=== PATIENT | female | born 2000 | race Caucasian/White ===

== ENCOUNTER 2022-06-14 17:06 | Emergency (ER) | payer OTHER, SELFPAY ==
--- OUTSIDE RECORDS SUMMARY | 2022-06-14 17:14 | XMS REPORT | Continuity of Care Document ---
:2000 [facility] t Address [address] [place] [address] Dr. Zafar [address] [place] [address] Care Team Providers Name Role Phone PCP, PATIENT DOES NOT HAVE A Primary Care Physician UnavailYUKI Crews Attending Clinician Unavailable Yuki Joe Attending Clinician Bryan Kilpatrick MD Attending Clinician [phone] BRYAN KILPATRICK Attending Clinician Unavailable ROXIE KAPOOR Attending Clinician Unavailable Roxie Kapoor MD Attending Clinician NA SHAH Attending Clinician Unavailable Na Shah MD Attending Clinician Riddhi Proctor Attending Clinician RIDDHI CHEUNG Attending Clinician Unavailable Doctor Unassigned, Prue Attending Clinician Unavailable VENU MUIR Attending Clinician Unavailable PADMINI PURVIS Attending Clinician Unavailable HAYLEY STARKEY Attending Clinician Unavailable ROXIE KAPOOR Admitting Clinician Unavailable Payers Payer Name Policy Type Policy Number Effective Date Expiration Date S ource [employer] [id number] 2020 00:00:00 Problems Condition Condition Condition Status Onset Resolution Last Treating Co mments Source Name Details Category Date Date Treatment Clinician Date No known No known Disease Unive rs active active ity of problems problems [facility] Allergies, Adverse Reactions, Alerts Allergy Allergy Status Severity Reaction(s) Onset Inactive Treating Comm ents Source Name Type Date Date Clinician NO KNOWN Drug Active Univers ALLERGIE Class ity of S [facility] Social History Social Habit Start Date Stop Date Quantity Comments Source History SDLA University o f Alcohol Std [place] [facility] History [facility] University o f Alcohol Binge [place] [facility] History [facility] University o f Alcohol Comment [place] [facility] Exposure to 2022-06-04 2022-06-14 Not sure University SARS-CoV-2 00:00:00 11:30:00 [facility] (event) Branch Alcohol intake 2022-06-14 2022-06-14 Lifetime University of 00:00:00 00:00:00 non-drinker [facility] (finding) [place] Tobacco use and 2021-12-28 2021-12-28 Smokeless tobacco Un iversity of exposure 00:00:00 00:00:00 non-user [place] [facility] [place] History SDOH 2019-01-20 2019-01-20 1 University o f Alcohol Frequency 00:00:00 00:00:00 [facility] edical [place] Sex Assigned At [birth year] Universit y of 00:00:00 00:00:00 [facility] Smoking Status Start Date Stop Date Source Tobacco smoking consumption Univ ersity of [facility] unknown Branch Never smoked tobacco [facility] Medications Ordered Filled Start Stop Current Ordering Indication Dosage Frequency Signature Comments Components Source Medication Medication Date Date Medication? Clinician (SIG) Name Name diphenhydrA 2021-06 No 25mg 25 mg, Uni vers MINE 08-14 Slow IV ity of (BENADRYL) 02:00: 01:55 Push, [place] injection 00 :00 ONCE, 1 Medical 25 mg dose, On [facility] 06/12/22 at 2000, STAT dexamethaso 2021-06 No 10mg 10 mg, Uni vers ne sod phos 08-14 Slow IV ity of PF 02:00: 01:55 Push, [place] injection 00 :00 ONCE, 1 Medical 10 mg dose, On Branch 06/12/22 at 2000, 1 mL acetaminoph 2021-06 No 1000mg 1,000 mg, Univers en 08-14 Oral, ity of (TYLENOL) 00:30: 01:23 ONCE, [place] tablet [place] :[place] dose, On Medical 1,000 mg Sun [place] 06/12/22 at 1830, Routine diphenhydrA 2021-06- No 25mg 25 mg, Uni vers MINE 08-14 Slow IV ity of (BENADRYL) 00:00: 01:26 Push, [place] injection 00 :00 ONCE, 1 Medical 25 mg dose, On Branch 06/12/22 at 1800, STAT metoclopram 2021-06 No 10mg 10 mg, Uni vers cheryl HCl 08-14 Slow IV ity of (REGLAN) 00:00: 01:24 Push, [place] injection 00 :00 ONCE, 1 Medical 10 mg dose, On Branch 06/12/22 at 1800, AMADO NaCl 0.9% 2021-06- No 1000mL at 999 Uni vers (NS) bolus 08-14 mL/hr, ity of infusion 00:00: 02:31 1,000 mL, Neel as 1,000 mL 00 :00 IV Medical Infusion, Branch ONCE, 1 dose, On 06/12/22 at 1800, STAT metFORMIN 0 Yes [id number] 500mg Take 1 U nivers 500 mg 7-16 tablet by ity of tablet 00:00: mouth in [place] [address] [facility] morning Branch and 1 tablet in the evening. metFORMIN 2021-0 Yes [id number] 500mg Take 1 U nivers 500 mg 7-16 tablet by ity of tablet 00:00: mouth in [place] [address] [facility] morning [place] and 1 tablet in the evening. metFORMIN 2021-0 Yes [id number] 500mg Take 1 U nivers 500 mg 7-16 tablet by ity of tablet 00:00: mouth in [place] [address] [facility] morning [place] and 1 tablet in the evening. ondansetron 2021-0 Yes [id number] 4mg Take 1 Univers 4 mg 7-12 tablet by ity of disintegrat 00:00: mouth [place] ing tablet 00 every 8 Medica l (eight) Branch hours as needed for Nausea and Vomiting (N/V). ondansetron 2021-0 Yes [id number] 4mg Take 1 Univers 4 mg 7-12 tablet by ity of disintegrat 00:00: mouth [place] ing tablet 00 every 8 Medica l (eight) Branch hours as needed for Nausea and Vomiting (N/V). ondansetron 2021-0 Yes [id number] 4mg Take 1 Univers 4 mg 7-12 tablet by ity of disintegrat 00:00: mouth [place] ing tablet 00 every 8 Medica l (eight) Branch hours as needed for Nausea and Vomiting (N/V). norgestimat 0 Yes Take by Uni vers e-ethinyl 5-03 mouth. ity of estradiol 09:56: [place] (SPRINTEC, 39 Medical 28, ORAL) Branch norgestimat 0 Yes Take by Uni vers e-ethinyl 5-03 mouth. ity of estradiol 09:56: [place] (SPRINTEC, 39 Medical 28, ORAL) Branch norgestimat 0 Yes Take by Uni vers e-ethinyl 5-03 mouth. ity of estradiol 09:56: [place] (SPRINTEC, 39 Medical 28, ORAL) Branch norgestimat 0 Yes Take by Uni vers e-ethinyl 5-03 mouth. ity of estradiol 09:56: [place] (SPRINTEC, 39 Medical 28, ORAL) Branch norgestimat 0 Yes Take by Uni vers e-ethinyl 5-03 mouth. ity of estradiol 09:56: [place] (SPRINTEC, 39 Medical 28, ORAL) Branch norgestimat 0 Yes Take by Uni vers e-ethinyl 5-03 mouth. ity of estradiol 09:56: [place] (SPRINTEC, 39 Medical 28, ORAL) Branch fluticasone 0 Yes [id number] 2{spray Use 2 Univers propionate 5-03 } Sprays in ity of 50 00:00: each [place] mcg/actuati 00 nostril Medic al on nasal daily. Branch spray fluticasone 2021-0 Yes [id number] 2{spray Use 2 Univers propionate 5-03 } Sprays in ity of 50 00:00: each [place] mcg/actuati 00 nostril Medic al on nasal daily. Branch spray fluticasone 2021-0 Yes [id number] 2{spray Use 2 Univers propionate 5-03 } Sprays in ity of 50 00:00: each [place] mcg/actuati 00 nostril Medic al on nasal daily. Branch spray fluticasone 2021-0 Yes [id number] 2{spray Use 2 Univers propionate 5-03 } Sprays in ity of 50 00:00: each [place] mcg/actuati 00 nostril Medic al on nasal daily. Branch spray fluticasone Yes [id number] 2{spray Use 2 Univers propionate 5-03 } Sprays in ity of 50 00:00: each [place] mcg/actuati 00 nostril Medic al on nasal daily. Branch spray fluticasone Yes [id number] 2{spray Use 2 Univers propionate 5-03 } Sprays in ity of 50 00:00: each [place] mcg/actuati 00 nostril Medic al on nasal daily. Branch spray amoxicillin 2021- No [id number] 875mg Take 1 Univers 875 mg 5-03 05-14 tablet by ity of tablet 00:00: 04:59 mouth 2 [place] 00 :00 (two) [facility] daily for 10 days. azithromyci Yes [id number] 500mg Take 1 Univers n 500 mg 5-05 tablet by ity of tablet 00:00: mouth [place] 00 daily. Medical Branch azithromyci Yes [id number] 500mg Take 1 Univers n 500 mg 5-05 tablet by ity of tablet 00:00: mouth [place] 00 daily. [facility] azithromyci 2021- No [id number] 500mg Take 1 Univers n 500 mg 5-05 07-12 tablet by ity o f tablet 00:00: 00:00 mouth [place] 00 :00 daily. [facility] Vital Signs Vital Name Observation Time Observation Value Comments Source Systolic blood 2022-06-14 17:32:00 144 [facility] Diastolic blood 2022-06-14 17:32:00 94 mm[Hg] [facility] Heart rate 2022-06-14 17:32:00 96 /min [facility] Body temperature 2022-06-14 17:32:00 36.89 Natalia [facility] Respiratory rate 2022-06-14 17:32:00 16 /min [facility] Body height 2022-06-14 17:32:00 149.9 cm [facility] Body weight 2022-06-14 17:32:00 114.76 kg [facility] BMI 2022-06-14 17:32:00 51.10 kg/m2 Universi ty [facility] [place] [facility] Oxygen saturation in 2022-06-14 17:32:00 100 /min University of Arterial blood by [facility] chiquis Pulse oximetry Branch Systolic blood 2022-06-13 03:15:00 116 mm[Hg] Univer sity of pressure [place] [facility] Diastolic blood 2022-06-13 03:15:00 71 mm[Hg] Unive rsity of pressure [place] [facility] Heart rate 2022-06-13 03:15:00 78 /min [facility]i ty [facility] [place] [facility] Respiratory rate 2022-06-13 03:15:00 18 /min Univ ersity of [place] [facility] Oxygen saturation in 2022-06-13 03:15:00 98 /min University of Arterial blood by [facility] Pulse oximetry Branch Body temperature 2022-06-12 23:29:00 37.11 Natalia Univ ersity [facility] [place] [facility] Body height 2022-06-12 23:29:00 147.3 cm [facility] [place] [facility] Body weight 2022-06-12 23:29:00 112.492 kg [facility] [place] [facility] BMI 2022-06-12 23:29:00 51.83 kg/m2 [facility] [place] [facility] Systolic blood 2022-01-01 20:53:14 137 mm[Hg] Univer sity of pressure [place] [facility] Diastolic blood 2022-01-01 20:53:14 87 mm[Hg] Unive rsity of pressure [place] [facility] Heart rate 2022-01-01 20:53:14 80 /min Universi ty [facility] [place] [facility] Respiratory rate 2022-01-01 20:53:14 19 /min Univ ersity of [place] [facility] Oxygen saturation in 2022-01-01 20:53:14 98 /min University of Arterial blood by [facility] Pulse oximetry Branch Body temperature 2022-01-01 17:59:00 37.56 Natalia Univ ersity [facility] [place] [facility] Body height 2022-01-01 17:59:00 149.9 cm [facility] [place] [facility] Body weight 2022-01-01 17:59:00 112.628 kg [facility] [place] [facility] BMI 2022-01-01 17:59:00 50.15 kg/m2 [facility] [place] [facility] Systolic blood 2021-12-28 22:49:00 130 mm[Hg] Univer sity of pressure [place] [facility] [place] Diastolic blood 2021-12-28 22:49:00 90 mm[Hg] Unive rsity of pressure [place] [facility] [place] Heart rate 2021-12-28 22:48:00 95 /min Universi ty of [facility] Body temperature 2021-12-28 22:48:00 36.89 Natalia Univ ersity of [facility] Respiratory rate 2021-12-28 22:48:00 16 /min Univ ersity of [place] [facility] [place] Body height 2021-12-28 22:48:00 149.9 cm Universi ty of [place] [facility] [place] Body weight 2021-12-28 22:48:00 111.857 kg Universi ty of [facility] BMI 2021-12-28 22:48:00 49.81 kg/m2 Universi ty of [facility] Oxygen saturation in 2021-12-28 22:48:00 97 /min University of Arterial blood by [facility] Pulse oximetry Branch Systolic blood 2021-10-19 14:55:00 115 mm[Hg] Univer sity of pressure [place] [facility] [place] Diastolic blood 2021-10-19 14:55:00 77 mm[Hg] Unive rsity of pressure [facility] Heart rate 2021-10-19 14:55:00 89 /min Universi ty of [facility] Body temperature 2021-10-19 14:55:00 36.83 Natalia Univ ersity of [facility] Respiratory rate 2021-10-19 14:55:00 20 /min Univ ersity of [facility] Body height 2021-10-19 14:55:00 149.9 cm Universi ty of [place] [facility] [place] Body weight 2021-10-19 14:55:00 110.269 kg Universi ty of [place] [facility] [place] BMI 2021-10-19 14:55:00 49.10 kg/m2 Universi ty of [facility] Branch Oxygen saturation in 2021-10-19 14:55:00 98 /min University of Arterial blood by [facility] Pulse oximetry Branch Procedures Procedure Date / Time Performing Clinician Source Performed POCT GLUCOSE (AUTOMATED) 2022-06-14 17:51:[address] [facility] CONSENT/REFUSAL FOR 2022-06-14 17:29:20 Doctor Unassigned, [facility] DIAGNOSIS AND TREATMENT [facility] POCT TEST 2022-06-13 01:24:00 Bryan Kilpatrick [facility] COMP. METABOLIC PANEL 2022-06-13 01:20:00 Bryan Kilpatrick [facility] ([id number]) [facility] CBC WITH DIFF 2022-06-13 01:20:00 Shonna [facility] URINALYSIS 2022-06-13 01:20:00 Shonna [facility] POCT GLUCOSE (AUTOMATED) 2022-06-12 23:27:00 Bryan Kilpatrick [facility] CONSENT/REFUSAL FOR 2022-06-12 22:56:38 Doctor Unassigned, [facility] DIAGNOSIS AND TREATMENT [facility] CT HEAD WO CONTRAST 2022-01-01 19:08:00 Roxie Kapoor [facility] AC PANEL 21 + LACTIC ACID 2022-01-01 18:40:00 [facility]NES[facility] 2022-01-01 18:38:00 Roxie Kapoor [facility] AMMONIA, PLASMA 2022-01-01 18:38:00 [facility]OP[facility]IN I 2022-01-01 18:38:00 Roxie Kapoor [facility] FREE T4 2022-01-01 18:38:00 Roxie Kapoor [facility] THYROID STIMULATING 2022-01-01 18:38:00 Roxie Kapoor [facility] HORMONE [facility] COMP. METABOLIC PANEL 2022-01-01 18:38:00 Roxie Kapoor [facility] ([id number]) Medical Branch ETHANOL 2022-01-01 18:38:00 Roxie Kapoor [facility] CBC WITH DIFF 2022-01-01 18:38:00 Roxie Kapoor [facility] GLYCOSYLATED HEMOGLOBIN 2022-01-01 18:38:00 [facility] PROTHROMBIN TIME / INR 2022-01-01 18:38:00 Roxie Kapoor [facility] ACTIVATED PARTIAL 2022-01-01 18:38:00 Roxie Kapoor [facility] THRMPLAS [facility] URINALYSIS 2022-01-01 18:38:00 Roxie Kapoor Pitcher o f [facility] N-TERMINAL PRO-BNP 2022-01-01 18:38:00 Roxie Kapoor [facility] URINE DRUG (IMMUNOASSAY) 2022-01-01 18:38:00 Roxie Kapoor [facility] DRUG [facility] SCREEN W/O REFLEX POCT TEST 2022-01-01 18:37:00 Roxie Kapoor [facility] NOTICE OF PRIVACY 2022-01-01 17:47:43 Doctor Unasslissy, [facility] PRACTICES [facility] CONSENT/REFUSAL FOR 2022-01-01 17:45:03 Doctor Unajoce, [facility] DIAGNOSIS AND TREATMENT [facility] POCT MOLECULAR FLU 2021-12-28 23:01:00 Na Shah [facility] POCT MOLECULAR STREP 2021-10-19 15:05:00 Riddhi Cheung [facility] STATEMENT OF PATIENT 2021-10-19 05:01:00 Doctor Unassigned, [facility] FINANCIAL RESPONSIBILITY Prue [facility] Encounters Start End Encounter Admission Attending Care Care Encounter Source Date/Time Date/Time Type Type Clinicians Facility Department ID 2022-06-14 2022-06-14 Emergency X BRITTNEY SNIDER ERT [id number] Univers 11:33:00 13:05:00 [facility] 2022-06-14 2022-06-14 Emergency Jaycob WYXIOMARA [id number] Univers 11:33:00 13:05:00 Yuki AMBROSE [id number] i [facility] [id number] [facility] [id number] [place] [address] Branch 2022-06-12 2022-06-12 Emergency Aufderheide [facility] [id number] Univers 17:31:00 21:24:00 , Bryan AMBROSE [id number] i ty of Yarelis RIVERA 4.2.7.2.686 [id number] [address] 2022-06-12 2022-06-12 Emergency X AUFDERHEIDE [facility] ERT [id number] Univers 17:31:00 21:24:00 , BRYAN de santiago [facility] 2022-01-01 2022-01-01 Emergency [facility] [id number] Univers 13:01:00 15:56:00 ROXIE de santiago [facility] 2022-01-01 2022-01-01 Emergency [facility] [id number] Univers 13:01:00 15:56:00 Roxie AMBROSE [id number] i ty of NICOLE 4.2.7.2.686 [facility] [id number] [address] 2022-01-01 2022-01-01 Emergency [facility] ERT [id number] Univers 13:01:00 15:56:00 ROXIE [facility] 2021-12-28 2021-12-28 Outpatient [facility] [id number] Univers 17:40:00 17:59:13 NA [facility] 2021-12-28 2021-12-28 Urgent [facility] [id number] Univers 17:40:00 17:59:13 [facility] [id number] it y of [facility] 4.2.7.2.686 Neel as GORGE?BLEA [id number] [address] MEDICAL OFFICE [facility] 2021-10-19 2021-10-19 Urgent [facility] [id number] Univers 09:20:00 09:40:00 Care Riddhi [facility] [id number] i ty of ARNOL 4.2.7.2.686 Neel as GORGE?BLEA [id number] [address] MEDICAL OFFICE [facility] 2021-10-19 2021-10-19 Outpatient R YOANDY [facility] [id number] Univers 09:20:00 09:20:00 RIDDHI de santiago o [facility] 2021-10-19 2021-10-19 Orders Doctor JESSICA [id number] Univers 00:00:00 00:00:00 Only Unassigned, ROBERT 350.1.13.10 ity of Prue [facility] 4.2.7.2.686 Neel as [id number] [address] 2021-10-19 2021-10-19 Letter [facility] [id number] Univers 00:00:00 00:00:00 (Out) [facility] 350.1.13.10 i ty of OPHEIM 4.2.7.2.686 Neel as GORGE?BLEA [id number] [address] MEDICAL OFFICE BUILDING 2020-07-17 2020-07-17 Outpatient [facility] [id number] Univers 16:20:00 16:20:00 VENU angelysavita mayer [facility] 2020-07-10 2020-07-10 Out[facility] [id number] Univers 11:20:00 11:20:00 PADMINI [facility] 2020-07-02 2020-07-02 Outpatient [facility] [id number] Univers 17:40:00 17:40:00 VENU mayer [facility] 2019-10-22 2019-10-22 Outpatient [facility] [id number] Univers 13:30:00 13:30:00 HAYLEY [facility] Results Test Description Test Time Test Comments Results Result Comments Source POCT GLUCOSE (AUTOMATED) 2022-06-14 17:52:47 Test Item Value Reference Range Interpretation Comme nts POCT GLU (test code = 8704383532) 162 mg/dL 70-110 H Lab Interpretation (test code = 81660-8) [facility] >30DAYS[facility]2022-06-14 17:51:00 Test Item Value Reference Range Interpretation Comments POCT Glu (age>30days) (test code = 162 mg/dL 70-110 A 3342) Lab Interpretation (test code = Abnormal 53999-8) [facility]. METABOLIC PANEL (32490)2022-06-13 01:40:55 Test Item Value Reference Range Interpretation Comments NA (test code = 138 mmol/L 135-145 8719030437) K (test code = 4.1 mmol/L 3.5-5.0 2941934338) CL (test code = 103 mmol/L 98-108 7653216128) CO2 TOTAL (test code = 26 mmol/L 23-31 9637698206) AGAP (test code = 2-16 4216561540) BUN (test code = 10 mg/dL 7-23 4146618783) GLUCOSE (test code = 180 mg/dL 70-110 H 9045793038) CREATININE (test code = 0.41 mg/dL 0.50-1.04 L 7577437824) TOTAL BILI (test code = 0.5 mg/dL 0.1-1.9 0686451069) CALCIUM (test code = 8.8 mg/dL 8.6-10.6 4435411061) T PROTEIN (test code = 6.8 g/dL 6.3-8.2 0336237436) ALBUMIN (test code = 4.2 g/dL 3.5-5.0 7246943609) ALK PHOS (test code = 59 U/L 34-122 3498296543) ALTv (test code = 49 U/L 5-35 H 1742-6) AST(SGOT) (test code = 56 U/L 13-40 H 0956839679) eGFR (test code = mL/min/1.73m2 4222134805) JAYDEN (test code = JAYDEN) Association of Glomerular Filtration Rate (GFR) and Staging of Kidney Disease* + --+ --+ ------+| GFR (mL/min/1.73 m2) ?| With Kidney Damage ?| ?Without Kidney Damage+ --------+ --------+ +| ?>90 ?| ?Stage one ?| ? Normal ?+ ---+ ---+ -------+| ?60-89 ?| ?Stage two ?| ? Decreased GFR ? + --+ --+ ------+| ?30-59 ?| ?Stage three ?| ? Stage three ? + --+ --+ ------+| ?15-29 ?| ?Stage four ? | ? Stage four ?+ ---+ ---+ -------+| ?<15 (or dialysis) ? ?| ?Stage five ? | ? Stage five ?+ ---+ ---+ -------+ *Each stage assumes the associated GFR level has been in effect for at least three months. ?Stages 1 to 5, with or without kidney disease, indicate chronic kidney disease. Notes: Determination of stages one and two (with eGFR >59mL/min/1.73 m2) requires estimation of kidney damage for at least three months as defined by structural or functional abnormalities of the kidney, manifested by either:Pathological abnormalities or Markers of kidney damage (including abnormalities in the composition of the blood or urine or abnormalities in imaging tests). Lab Interpretation Abnormal (test code = 66049-2) [facility] WITH [id number] 01:27:37 Test Item Value Reference Range Interpretation Comments WBC (test code = See_Comment [Automated 2620-2) message] The sy stem which generated this result transmitted reference range : 4.30 - 11.10 10*3/?L. The reference range was not used to interpret this result as normal/abnormal . RBC (test code = See_Comment [Automated 416-8) message] The sy stem which generated this result transmitted reference range : 3.93 - 5.25 10*6/?L. The reference range was not used to interpret this result as normal/abnormal . HGB (test code = 14.4 g/dL 11.6-15.0 718-7) HCT (test code = 41.0 % 35.7-45.2 4544-3) MCV (test code = 83.5 fL 80.6-95.5 787-2) MCH (test code = 29.3 pg 25.9-32.8 785-6) MCHC (test code = 35.1 g/dL 31.6-35.1 786-4) RDW-SD (test code = 38.2 fL 39.0-49.9 L 11616-5) RDW-CV (test code = 12.7 % 12.0-15.5 788-0) PLT (test code = See_Comment [Automated 827-3) message] The sy stem which generated this result transmitted reference range : 166 - 358 10*3/ ?L. The reference r delores was not used to interpret this result as normal/abnormal . MPV (test code = 10.9 fL 9.5-12.9 12677-1) NRBC/100 WBC (test See_Comment [Automat ed code = 1461056215) message] The system which generated this result transmitted reference range : 0.0 - 10.0 /100 WBCs. The refer ence range was not u sed to interpret th is result as normal/abnormal . NRBC x10^3 (test code See_Comment [Auto mated = 1580723228) message] The s ystem which generated this result transmitted reference range : 10*3/?L. The reference range was not used to interpret this result as normal/abnormal . GRAN MAT (NEUT) % 56.6 % (test code = 770-8) IMM GRAN % (test code 0.50 % = 2447352639) LYMPH % (test code = 33.2 % 736-9) MONO % (test code = 8.0 % 5905-5) EOS % (test code = 1.0 % 713-8) BASO % (test code = 0.7 % 706-2) GRAN MAT x10^3(ANC) 3.49 10*3/uL 1.88-7.09 (test code = 1657049521) IMM GRAN x10^3 (test 0.03 10*3/uL 0.00-0.06 code = 7005344124) LYMPH x10^3 (test code 2.04 10*3/uL 1.32-3.29 = 731-0) MONO x10^3 (test code 0.49 10*3/uL 0.33-0.92 = 742-7) EOS x10^3 (test code = 0.06 10*3/uL 0.03-0.39 711-2) BASO x10^3 (test code 0.04 10*3/uL 0.01-0.07 = 704-7) Lab Interpretation Abnormal (test code = 61066-2) [facility] [id number] 01:24:00 Test Item Value Reference Range Interpretation Comments POCT PREG (test code = 1605) negative On board controls acceptable with positive C Line (test code = 3574) POCT PREG LOT # (test code = 3575) [id number] POCT PREG TEST DATE (test 09/17/2023 code = 3576) Lab Interpretation (test code = Normal 58289-0) [facility]2022-06-12 23:34:10 Test Item Value Reference Range Interpretation Comments POCT GLU (test code = 2375011764) 296 mg/dL 70-110 H Lab Interpretation (test code = Abnormal 93349-2) [facility] (A1C)2022-01-01 20:12:57 Test Item Value Reference Range Interpretation Comments HGB A1C (test code = 8.2 % 4-5.7 H 4548-4) JAYDEN (test code = JAYDEN) Reference RangesNormal: <5.7%Prediabetes: 5.7 - 6.4%Diabetes: > 6.5% Lab Interpretation (test Abnormal code = 31363-6) [facility] HospitalTHYROID STIMULATING [id number] 19:46:18 Test Item Value Reference Range Interpretation Comments TSH (test code = See_Comment [Automated message] [id number]) The system Quid generated this result transmitted ref erence range: 0.45 - 4 .70 mIU/L. The refe rence range was not u sed to interpret this result as normal/abnor mal. Lab Interpretation (test Normal code = 26673-8) [facility] HospitalFREE [id number] 19:33:18 Test Item Value Reference Range Interpretation Comments FREE T4 (test code = See_Comment [Autom ated message] [id number]) The system Quid generated this result transmitted ref erence range: 0.78 - 2 .20 ng/dL:. The ref erence range was not u sed to interpret this result as normal/abnor mal. Lab Interpretation (test Normal code = 60387-5) [facility] HospitalTROPONIN [id number] 19:28:16 Test Item Value Reference Interpretation Comments Range TROPONIN I (test 0.003 ng/mL See_Comment [Automated code = 0272063694) message] The system which generated this result transmitted reference range : <=0.034. The reference range was not used to interpret this result as normal/abnormal . JAYDEN (test code = Reference (Normal) JAYDEN) Range (defined by the 99th percentile reference limit): <= 0.034 ng/mL Note: Cardiac troponin begins to rise 3-4 hours after the onset of ischemia. Repeat in 4-6 hours if the sample was drawn within 3-4 hours of the onset of the symptom and found normal. Diagnosis of myocardial injury is made with acute changes in cTn concentrations with at least one serial sample above the 99th percentile upper reference limit (URL), taken together with the patient's clinical presentation. Biotin has been reported to cause a negative bias, interpret results relative to patient's use of biotin. Lab Interpretation Normal (test code = 19444-4) [facility] HospitalN-TERMINAL [id number] 19:24:55 Test Item Value Reference Range Interpretation Comments NT-proBNP (test code 35 pg/mL See_Comment [Autom ated = 5542255709) message] The system which generated this result transmitted reference range : <=125. The reference range was not used to interpret this result as normal/abnormal . JAYDEN (test code = JAYDEN) Biotin has been reported to cause a negative bias, interpret results relative to patient's use of biotin. Lab Interpretation Normal (test code = 20504-7) [facility] HospitalETHANOL2022-07-16 19:24:45 ALCOHOL<10mg/dL01/01/2022 2:[address] [facility]<10 [id number] Toxic>100 Depression of MEDICAL CENTER MANAGER>400 Fatalities ReportedUnH[facility] SoutheastACTIVATED PARTIAL THRMPLAS LEYDI 2022-01-01 19:23:59 Test Item Value Reference Range Interpretation Comments APTT Patient (test See_Comment [Automat ed code = 3173-2) message] The system which generated this result transmitted reference range : 23 - 38 Seconds . The reference range was not used to interpr et this result as normal/abnormal . JAYDEN (test code = JAYDEN) The [facility] [place] patient population mean normal value for aPTT is 30 seconds. Lab Interpretation Normal (test code = 08181-8) [facility] HospitalPROTHROMBIN TIME / [id number] 19:21:59 Test Item Value Reference Range Interpretation Comments PROTIME PATIENT (test See_Comment [Auto mated message] code = 5964-2) The system [employer] generated this result transmitted ref erence range: 12.0 - 1 4.7 Seconds. The re ference range was not u sed to interpret this result as normal/abnor mal. INR (test code = 6301-6) Nor mal INR <1.1; Warfarin Therap eutic range 2.0 to 3. 0 or 2.5 to 3.5, dep ending upon the indica tions. Lab Interpretation (test Normal code = 24319-3) [facility] HospitalAMMONIA, [id number] 19:18:47 Test Item Value Reference Range Interpretation Comments AMMONIA (test code = 0388750656) 9-33 L Lab Interpretation (test code = Abnormal 63340-6) [facility] HospitalMAGNESIUM2022-07-16 19:10:59 Test Item Value Reference Range Interpretation Comments MAGNESIUM (test code = 4502660505) 1.7 mg/dL 1.7-2.4 Lab Interpretation (test code = Normal 55215-0) [facility] HospitalCOMP. METABOLIC PANEL (78734)2022-01-01 19:10:38 Test Item Value Reference Range Interpretation Comments NA (test code = 136 mmol/L 135-145 7679593103) K (test code = 4.6 mmol/L 3.5-5 6152383507) CL (test code = 103 mmol/L 98-108 4481434612) CO2 TOTAL (test code = 23 mmol/L 23-31 6009326864) AGAP (test code = 2-16 6231297947) BUN (test code = 9 mg/dL 7-23 1657120666) GLUCOSE (test code = 282 mg/dL 70-110 H 0590743544) CREATININE (test code = 0.34 mg/dL 0.5-1.04 L 0797102688) TOTAL BILI (test code = 0.5 mg/dL 0.1-1.9 7778498014) CALCIUM (test code = 9.1 mg/dL 8.6-10.6 5255896810) T PROTEIN (test code = 7.1 g/dL 6.3-8.2 3058340687) ALBUMIN (test code = 4.4 g/dL 3.5-5 5441217145) ALK PHOS (test code = 50 U/L 34-122 3839007164) ALTv (test code = 42 U/L 5-35 H 1742-6) AST(SGOT) (test code = 44 U/L 13-40 H 8553183297) eGFR (test code = mL/min/1.73m2 9088587284) JAYDEN (test code = JAYDEN) Association of Glomerular Filtration Rate (GFR) and Staging of Kidney Disease* + --+ --+ ------+| GFR (mL/min/1.73 m2) ?| With Kidney Damage ?| ?Without Kidney Damage+ --------+ --------+ +| ?>90 ?| ?Stage one ?| ? Normal ?+ ---+ ---+ -------+| ?60-89 ?| ?Stage two ?| ? Decreased GFR ? + --+ --+ ------+| ?30-59 ?| ?Stage three ?| ? Stage three ? + --+ --+ ------+| ?15-29 ?| ?Stage four ? | ? Stage four ?+ ---+ ---+ -------+| ?<15 (or dialysis) ? ?| ?Stage five ? | ? Stage five ?+ ---+ ---+ -------+ *Each stage assumes the associated GFR level has been in effect for at least three months. ?Stages 1 to 5, with or without kidney disease, indicate chronic kidney disease. Notes: Determination of stages one and two (with eGFR >59mL/min/1.73 m2) requires estimation of kidney damage for at least three months as defined by structural or functional abnormalities of the kidney, manifested by either:Pathological abnormalities or Markers of kidney damage (including abnormalities in the composition of the blood or urine or abnormalities in imaging tests). Lab Interpretation Abnormal (test code = 71554-3) [facility] WITH [id number] 19:03:19 Test Item Value Reference Range Interpretation Comments WBC (test code = See_Comment [Automated 90-2) message] The sy stem which generated this result transmitted reference range : 4.30 - 11.10 10*3/?L. The reference range was not used to interpret this result as normal/abnormal . RBC (test code = See_Comment [Automated 789-8) message] The sy stem which generated this result transmitted reference range : 3.93 - 5.25 10*6/?L. The reference range was not used to interpret this result as normal/abnormal . HGB (test code = 14.7 g/dL 11.6-15 718-7) HCT (test code = 41.5 % 35.7-45.2 4544-3) MCV (test code = 83.7 fL 80.6-95.5 787-2) MCH (test code = 29.6 pg 25.9-32.8 785-6) MCHC (test code = 35.4 g/dL 31.6-35.1 H 786-4) RDW-SD (test code = 37.7 fL 39-49.9 L 04732-4) RDW-CV (test code = 12.5 % 12-15.5 788-0) PLT (test code = See_Comment [Automated 777-3) message] The sy stem which generated this result transmitted reference range : 166 - 358 10*3/ ?L. The reference r delores was not used to interpret this result as normal/abnormal . MPV (test code = 11.1 fL 9.5-12.9 88809-9) NRBC/100 WBC (test See_Comment [Automat ed code = 4307169614) message] The system which generated this result transmitted reference range : 0.0 - 10.0 /100 WBCs. The refer ence range was not u sed to interpret th is result as normal/abnormal . NRBC x10^3 (test code See_Comment [Auto mated = 6467531811) message] The s ystem which generated this result transmitted reference range : 10*3/?L. The reference range was not used to interpret this result as normal/abnormal . GRAN MAT (NEUT) % 68.2 % (test code = 770-8) IMM GRAN % (test code 0.50 % = 7181067098) LYMPH % (test code = 23.6 % 736-9) MONO % (test code = 6.4 % 5905-5) EOS % (test code = 0.5 % 713-8) BASO % (test code = 0.8 % 706-2) GRAN MAT x10^3(ANC) 4.50 10*3/uL 1.88-7.09 (test code = 7664828787) IMM GRAN x10^3 (test 0.03 10*3/uL 0-0.06 code = 3915831686) LYMPH x10^3 (test code 1.55 10*3/uL 1.32-3.29 = 731-0) MONO x10^3 (test code 0.42 10*3/uL 0.33-0.92 = 742-7) EOS x10^3 (test code = 0.03 10*3/uL 0.03-0.39 711-2) BASO x10^3 (test code 0.05 10*3/uL 0.01-0.07 = 704-7) Lab Interpretation Abnormal (test code = 11235-1) [facility] [id number] 18:37:00 Test Item Value Reference Range Interpretation Comments POCT PREG (test code = 1605) negative On board controls acceptable with present C Line (test code = 3574) POCT PREG LOT # (test code = 3575) [id number] POCT PREG TEST DATE (test 04/18/2023 code = 3576) Lab Interpretation (test code = Normal 68635-3) [facility] MOLECULAR [id number] 23:13:16 Test Item Value Reference Range Interpretation Comments POCT Molecular FluA (test code = Negative Negative 23845-4) POCT Molecular FluB (test code = Negative Negative 85638-2) Lab Interpretation (test code = Normal 83744-1) [facility] MOLECULAR [id number] 15:09:14 Test Item Value Reference Range Interpretation Comments POCT Molecular Strep (test code = Positive Negative A 23587-8) Lab Interpretation (test code = Abnormal 80212-4) [facility]"
[2022-06-14 20:02] LABS: Absolute Lymphocytes (CBC) 2.5 K/uL (0.7-4.9); Hematocrit 42.7 % (36.0-45.0); Lymphocytes % 33.6 % (15.3-44.8); MCV 85.6 fL (80-100); MPV 9.2 fL (7.6-11.3); RBC Red Blood Cell Count 4.99 M/uL (3.86-4.86)
[2022-06-14 20:11] LABS: Albumin 3.7 g/dL (3.4-5.0); Bilirubin Direct 0.1 mg/dL (0-0.2); Bilirubin Total 0.4 mg/dL (0.2-1.0); Magnesium 1.8 mg/dL (1.6-2.4); Potassium 3.9 mmol/L (3.5-5.1); Protein, Total 7.4 g/dL (6.4-8.2)
--- NOTE | 2022-06-14 20:55 | RAD REPORT ---
EXAM DESCRIPTION: CT - Head Brain Wo Cont - 06/14/2022 8:21 pm CLINICAL HISTORY: lightheaded COMPARISON: No comparisons TECHNIQUE: All CT scans are performed using dose optimization technique as appropriate and may inclu de automated exposure control or mA/KV adjustment according to patient size. FINDINGS: No intracranial hemorrhage, hydrocephalus or extra-axial fluid collection.No areas of brai n edema or evidence of midline shift. Bilateral mastoid fluid. The calvarium is intact. IMPRESSION: No acute intracranial abnormality. Nonspecific bilateral mastoid fluid.
[2022-06-14 22:30] LABS: Urine Blood 3+ (Negative); Urine Glucose Negative (Negative); Urine Protein 2+ (Negative); Urine Specific Gravity >=1.030 (1.005-1.030)
--- NOTE | 2022-06-14 22:38 | ER ---
Nurse's Notes [facility] Name: Pam John Age: 22 yrs Sex: Female : 2000 Arrival Date: 06/14/2022 Time: 17:10 Bed DIS3 Private MD: Diagnosis: Diabetes mellitus due to underlying condition without complications Presentation: 06/14 17:39 Chief complaint: Patient states: AMS since 06/10. Was seen at [facility], ll1 had a full work-up. Found her sugar in the 300's. Still very sleepy, no appetite, emotional since. Coronavirus screen: Client denies travel out of the [place] in the last 14 days. At this time, the client does not indicate any symptoms associated with coronavirus-19. Ebola Screen: Patient denies travel to an Ebola-affected area in the 21 days before illness onset. Initial Sepsis Screen: Does the patient meet any 2 criteria? No. Patient's initial sepsis screen is negative. Does the patient have a suspected source of infection? No. Patient's initial sepsis screen is negative. Risk Assessment: Do you want to hurt yourself or someone else? Patient reports no desire to harm self or others. Onset of symptoms was June 10, 2022. 17:39 Method Of Arrival: Ambulatory [facility] 17:39 Acuity: ROBERT 3 ll1 Triage Assessment: 17:41 General: Appears uncomfortable, Behavior is cooperative, appropriate for age. Neuro: ll1 Reports headache. Cardiovascular: No deficits noted. Respiratory: No deficits noted. 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 - Social history:: Smoking status: Patient denies any tobacco usage or history of. Screenin:45 [facility] ED Fall Risk Assessment (Adult) History of falling in the last 3 months, kl including since admission. Abuse screen: Denies threats or abuse. Nutritional screening: No deficits noted. Tuberculosis screening: No symptoms or risk factors identified. Assessment: 19:45 Reassessment: Patient appears in no apparent distress at this time. Patient and/or kl family updated on plan of care and expected duration. Pain level reassessed. Patient is alert, oriented x 3, equal unlabored respirations, skin warm/dry/pink. General: Appears in no apparent distress. comfortable, Behavior is calm, cooperative. Pain: Denies pain. Vital Signs: 17:39 BP 131 / 83; Pulse 98; Resp 18; Temp 98.9; Pulse Ox 98% ; Weight 114.76 kg; Height 4 ll1 ft. 11 in. (149.86 cm); Pain 5/10; 17:39 Body Mass Index 51.10 (114.76 kg, 149.86 cm) ll1 ED Course: 17:10 Patient arrived in ED. as 17:12 Yohannes Couch PA is PHCP. cp 17:12 Yohannes Fernandez MD is Attending Physician. cp 17:39 Arm band placed on. ll1 17:41 Triage completed. ll1 20:23 CT Head Brain wo Cont In Process Unspecified. EDMS 22:46 No provider procedures requiring assistance completed. Patient did not have IV access kl during this emergency room visit. Administered Medications: No medications were administered Medication: 22:46 VIS not applicable for this client. kl Outcome: 22:37 Discharge ordered by MD. cp 22:47 Discharged to home ambulatory, with family. kl 22:47 Condition: good 22:47 Discharge instructions given to patient, family, Instructed on discharge instructions, follow up and referral plans. Demonstrated understanding of instructions. 23:09 Patient left the ED. kl Signatures: Dispatcher [employer] EDNC Hayley Brar RN RN kl Martinez, Amelia as Yohannes Couch PA PA cp Lewis, Lynsay, RN RN 1
--- NOTE | 2022-06-14 22:38 | EDPHYS ---
Physician Documentation [facility] Name: Pam John Age: 22 yrs Sex: Female : 2000 Arrival Date: 06/14/2022 Time: 17:10 Bed DIS3 Private MD: ED Physician Yohannes Fernandez HPI: 06/14 18:30 This 22 yrs old Female presents to ER via Ambulatory with complaints of Altered Mental cp Status. 18:30 The patient presents with patient describes symptoms as head feels like in a "fog". cp Onset: The symptoms/episode began/occurred last week. Possible causes: elevated blood glucose. Associated signs and symptoms: Pertinent positives: fatigue, Pertinent negatives: abdominal pain, chest pain, numbness, shortness of breath, vomiting, weakness. Current symptoms: In the emergency department the patient's symptoms are unchanged from the initial presentation, despite home interventions. Patient's baseline: Neuro: alert and fully oriented, Motor: no deficits, Ambulation: walks without assistance, Speech: normal. The patient has been recently seen by a physician: in [place] [facility], with similar presenting complaints. 18:30 Patient reports being prescribed Metformin 500 mg bid for diabetes but admits to not cp taking medication as prescribed. 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 - Social history:: Smoking status: Patient denies any tobacco usage or history of. ROS: 18:35 Constitutional: Positive for fatigue, Negative for body aches, chills, fever, poor PO cp intake. 18:35 Eyes: Negative for injury, pain, redness, and discharge. cp 18:35 ENT: Negative for drainage from ear(s), ear pain, sore throat, difficulty swallowing, difficulty handling secretions. 18:35 Cardiovascular: Negative for chest pain, edema, palpitations. 18:35 Respiratory: Negative for cough, shortness of breath, wheezing. 18:35 Abdomen/GI: Negative for abdominal pain, vomiting, diarrhea, constipation, anorexia, black/tarry stool, rectal bleeding. 18:35 : Negative for urinary symptoms, flank pain. 18:35 Skin: Negative for cellulitis, rash. 18:35 Neuro: Negative for altered mental status, headache, syncope. 18:35 All other systems are negative. Exam: 18:40 Constitutional: The patient appears in no acute distress, alert, awake, non-toxic, well cp developed, well nourished. 18:40 Head/Face: Normocephalic, atraumatic. cp 18:40 Eyes: Periorbital structures: appear normal, Pupils: equal, round, and reactive to light and accomodation, Extraocular movements: intact throughout, Conjunctiva: normal, no exudate, no injection, Sclera: no appreciated abnormality, Lids and lashes: appear normal, bilaterally. 18:40 ENT: External ear(s): are unremarkable, Nose: is normal, Mouth: Lips: moist, Oral mucosa: pink and intact, moist, Posterior pharynx: Airway: no evidence of obstruction, patent, swelling, is not appreciated, erythema, is not appreciated, exudate, is not appreciated. 18:40 Neck: ROM/movement: is normal, is supple, without pain, no range of motions limitations, no meningismus. 18:40 Chest/axilla: Inspection: normal. 18:40 Cardiovascular: Rate: normal, Rhythm: regular. 18:40 Respiratory: the patient does not display signs of respiratory distress, Respirations: normal, no use of accessory muscles, no retractions, labored breathing, is not present, Breath sounds: are clear throughout, no decreased breath sounds, no stridor, no wheezing. 18:40 Abdomen/GI: Exam negative for discomfort, distension, guarding, Inspection: abdomen appears normal. 18:40 Back: pain, is absent, ROM is normal. 18:40 Skin: no rash present. 18:40 Neuro: Orientation: to person, place \\T\\ time. Mentation: is normal, Cerebellar function: is grossly normal, Motor: moves all fours, strength is normal, Sensation: is normal, Gait: is steady, at a normal pace, without difficulty. Vital Signs: 17:39 BP 131 / 83; Pulse 98; Resp 18; Temp 98.9; Pulse Ox 98% ; Weight 114.76 kg; Height 4 ll1 ft. 11 in. (149.86 cm); Pain 5/10; 17:39 Body Mass Index 51.10 (114.76 kg, 149.86 cm) ll1 MDM: 19:10 Patient medically screened. joe 20:00 Differential Diagnosis: electrolyte abnormality, hypoglycemia, UTI, volume depletion, cp hyperglycemia. 22:36 Data reviewed: vital signs, nurses notes, lab test result(s), EKG. 22:36 Counseling: I had a detailed discussion with the patient and/or guardian regarding: the cp historical points, exam findings, and any diagnostic results supporting the discharge/admit diagnosis, lab results, the need for outpatient follow up, a family practitioner, to return to the emergency department if symptoms worsen or persist or if there are any questions or concerns that arise at home. ED course: VSS. Labs reviewed with serum glucose wnl. Mother reports patient has not eaten today. Patient stable, Will discharge to home and recommend f/u with family physician. 06/14 18:26 Order name: Basic Metabolic Panel; Complete Time: 21:20 06/14 21:20 Interpretation: Normal except: GLUC 122; CRE 0.47. 06/14 18:26 Order name: CBC with Diff; Complete Time: 21:20 06/14 21:21 Interpretation: Normal except: RBC 4.99. 06/14 18:26 Order name: LFT's; Complete Time: 21:20 06/14 22:33 Interpretation: Normal except: AST 49; ALT 63; GLOB 3.7; A/G 1.0. 06/14 18:26 Order name: Magnesium; Complete Time: 21:20 06/14 18:26 Order name: Cardiac monitoring 06/14 18:26 Order name: EKG - Nurse/Tech 06/14 18:26 Order name: ETOH Level; Complete Time: 21:20 06/14 19:36 Order name: Glucose, Ancillary Testing; Complete Time: 19:50 EDMS 06/14 19:51 Interpretation: Reviewed. 06/14 19:53 Order name: CT Head Brain wo Cont; Complete Time: 21:20 06/14 22:30 Order name: Urine Dipstick-Ancillary; Complete Time: 22:33 EDMS 06/14 22:33 Interpretation: Normal except: UKET 2+; UBLD 3+; UPROT 2+. 06/14 22:32 Order name: Urine --Ancillary (enter results) mw2 06/14 18:26 Order name: IV Saline Lock 06/14 18:26 Order name: Labs collected and sent 06/14 18:26 Order name: O2 Per Protocol 06/14 18:26 Order name: O2 Sat Monitoring 06/14 18:26 Order name: Urine Dipstick-Ancillary (obtain specimen); Complete Time: 22:31 06/14 18:26 Order name: Urine Test (obtain specimen); Complete Time: 22:31 cp Administered Medications: No medications were administered Disposition Summary: 06/14/22 22:37 Discharge Ordered Location: Home cp Problem: new cp Symptoms: are unchanged cp Condition: Stable cp Diagnosis - Diabetes mellitus due to 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
[2022-06-14 23:18] VITALS: BP 131/83; TEMP 98.9; O2SAT 98
[2022-06-15 00:17] LABS: Urine Specific Gravity/Preg >1.030 (1.005-1.030)
== END 2022-06-14 23:09 | disposition home or self-care (01) ==
LOC: ER 17:06
DX: Q96.9 Turner's syndrome, unspecified (principal); E08.9 Diabetes mellitus due to underlying condition without complications
CPT/HCPCS: 36415; 70450; 80048; 80076; 80320; 81003; 81025; 82947; 83735; 85025; 99283

== ENCOUNTER 2022-06-15 11:54 | Emergency (ER) | payer SELFPAY ==
--- OUTSIDE RECORDS SUMMARY | 2022-06-15 11:58 | XMS REPORT | Continuity of Care Document ---
:2000 Author Organization [facility] t Address [address] [place] [address] Dr. Zafar [address] [place] [address] Care Team Providers Name Role Phone PCP, PATIENT DOES NOT HAVE A Primary Care Physician UnavailMAINE Tatum Attending Clinician Unavailable [place] Ocasio Attending Clinician YUKI SNIDER Attending Clinician Unavailable Yuki Joe Attending Clinician Bryan Kilpatrick MD Attending Clinician [phone] BRYAN KILPATRICK Attending Clinician Unavailable ROXIE KAPOOR Attending Clinician Unavailable Roxie Kapoor MD Attending Clinician NA SHAH Attending Clinician Unavailable Na Shah MD Attending Clinician Riddhi Proctor Attending Clinician RIDDHI CHEUNG Attending Clinician Unavailable Doctor Unassigned, [place] Attending Clinician Unavailable VENU MUIR Attending Clinician Unavailable PADMINI PURVIS Attending Clinician Unavailable HAYLEY STARKEY Attending Clinician Unavailable ROXIE KAPOOR Admitting Clinician Unavailable Payers Payer Name Policy Type Policy Number Effective Date Expiration Date S ceceliace [employer] [id number] 2020 00:00:00 Problems Condition Condition Condition Status Onset Resolution Last Treating Co mments Source Name Details Category Date Date Treatment Clinician Date No known No known Disease Unive rs active active ity of problems problems [facility] Allergies, Adverse Reactions, Alerts Allergy Allergy Status Severity Reaction(s) Onset Inactive Treating Comm ents Source Name Type Date Date Clinician NO KNOWN Drug Active Univers ALLERGIE Class ity of S [place] [facility] [place] Social History Social Habit Start Date Stop Date Quantity Comments Source History SDNV University o f Alcohol Std [place] [facility] History [facility] University o f Alcohol Binge [place] [facility] History [facility] University o f Alcohol Comment [place] [facility] Exposure to 2022-06-05 2022-06-15 Not sure University SARS-CoV-2 00:00:00 08:46:00 [facility] (event) Branch Alcohol intake 2022-06-14 2022-06-14 Lifetime University of 00:00:00 00:00:00 non-drinker [facility] (finding) [place] Tobacco use and 2021-12-28 2021-12-28 Smokeless tobacco Un iversity of exposure 00:00:00 00:00:00 non-user [facility] [place] History SDOH 2019-01-20 2019-01-20 1 University o f Alcohol Frequency 00:00:00 00:00:00 [facility] edical [place] Sex Assigned At [birth year] Universit y of 00:00:00 00:00:00 [facility] Smoking Status Start Date Stop Date Source Tobacco [facility] consumption [facility] [place] Never smoked tobacco [facility] Medications Ordered Filled Start Stop Current Ordering Indication Dosage Frequency Signature Comments Components Source Medication Medication Date Date Medication? Clinician (SIG) Name Name diphenhydrA 2021-06 No 25mg 25 mg, Uni vers MINE 08-14 Slow IV ity of (BENADRYL) 02:00: 01:55 Push, [place] injection 00 :00 ONCE, 1 Medical 25 mg dose, On Branch 06/12/22 at 2000, STAT dexamethaso 2021-06 No 10mg 10 mg, Uni vers ne sod phos 08-14 Slow IV ity of PF 02:00: 01:55 Push, [place] injection 00 :00 ONCE, 1 Medical 10 mg dose, On Branch 06/12/22 at 2000, 1 mL acetaminoph 2021-06- No 1000mg 1,000 mg, Univers en 08-14 Oral, ity of (TYLENOL) 00:30: 01:23 ONCE, [place] tablet [place] :[place] dose, On Medical 1,000 mg Sun [place] 06/12/22 at 1830, Routine diphenhydrA 2021-06 No 25mg 25 mg, Uni vers MINE 08-14 Slow IV ity of (BENADRYL) 00:00: 01:26 Push, [place] injection 00 :00 ONCE, 1 Medical 25 mg dose, On [facility] 06/12/22 at 1800, STAT metoclopram 2021-06 No 10mg 10 mg, Uni vers cheryl HCl 08-14 Slow IV ity of (REGLAN) 00:00: 01:24 Push, [place] injection 00 :00 ONCE, 1 Medical 10 mg dose, On [facility] 06/12/22 at 1800, AMADO NaCl 0.9% 2021-06 No 1000mL at 999 Uni vers (NS) bolus 08-14 mL/hr, ity of infusion 00:00: 02:31 1,000 mL, Neel as 1,000 mL 00 :00 IV Medical Infusion, Branch ONCE, 1 dose, On [place] 06/12/22 at 1800, STAT metFORMIN 2021-0 Yes [id number] 500mg Take 1 U nivers 500 mg 7-16 tablet by ity of tablet 00:00: mouth in [address] and 1 tablet in the evening. metFORMIN 0 Yes [id number] 500mg Take 1 U nivers 500 mg 7-16 tablet by ity of tablet 00:00: mouth in [address] and 1 tablet in the evening. metFORMIN 2021-0 Yes [id number] 500mg Take 1 U nivers 500 mg 7-16 tablet by ity of tablet 00:00: mouth in [address] and 1 tablet in the evening. metFORMIN 2021-0 Yes [id number] 500mg Take 1 U nivers 500 mg 7-16 tablet by ity of tablet 00:00: mouth in [address] and 1 tablet in the evening. ondansetron 0 Yes [id number] 4mg Take 1 Univers 4 mg 7-12 tablet by ity of disintegrat 00:00: mouth [place] ing tablet 00 every 8 Medica l (eight) [place] hours as needed for Nausea and Vomiting (N/V). ondansetron Yes [id number] 4mg Take 1 Univers 4 mg 7-12 tablet by ity of disintegrat 00:00: mouth [place] ing tablet 00 every 8 Medica l (eight) Branch hours as needed for Nausea and Vomiting (N/V). ondansetron Yes [id number] 4mg Take 1 Univers 4 mg 7-12 tablet by ity of disintegrat 00:00: mouth [place] ing tablet 00 every 8 Medica l (eight) Branch hours as needed for Nausea and Vomiting (N/V). ondansetron Yes [id number] 4mg Take 1 Univers 4 mg 7-12 tablet by ity of disintegrat 00:00: mouth [place] ing tablet 00 every 8 Medica l (eight) Branch hours as needed for Nausea and Vomiting (N/V). norgestimat Yes Take by Uni vers e-ethinyl 5-03 mouth. ity of estradiol 09:56: [place] ([place] [address] Medical 28, ORAL) [place] norgestimat Yes Take by Uni vers e-ethinyl 5-03 mouth. ity of estradiol 09:56: [place] ([place] [address] Medical 28, ORAL) [place] norgestimat Yes Take by Uni vers e-ethinyl 5-03 mouth. ity of estradiol 09:56: [place] ([facility], Medical 28, ORAL) [place] norgestimat Yes Take by Uni vers e-ethinyl 5-03 mouth. ity of estradiol 09:56: [place] ([place] [address] Medical 28, ORAL) [place] norgestimat Yes Take by Uni vers e-ethinyl 5-03 mouth. ity of estradiol 09:56: [place] ([place] [address] Medical 28, ORAL) Branch norgestimat Yes Take by Uni vers e-ethinyl 5-03 mouth. ity of estradiol 09:56: [place] ([place] [address] Medical 28, ORAL) Branch norgestimat Yes Take by Uni vers e-ethinyl 5-03 mouth. ity of estradiol 09:56: [place] ([place] [address] Medical 28, ORAL) [place] fluticasone Yes [id number] 2{spray Use 2 Univers propionate 5-03 } Sprays in ity of 50 00:00: each [place] mcg/actuati 00 nostril Medic al on nasal daily. Branch spray fluticasone Yes [id number] 2{spray Use 2 Univers propionate 5-03 } Sprays in ity of 50 00:00: each [place] mcg/actuati 00 nostril Medic al on nasal daily. Branch spray fluticasone Yes [id number] 2{spray Use 2 Univers propionate 5-03 } Sprays in ity of 50 00:00: each [place] mcg/actuati 00 nostril Medic al on nasal daily. Branch spray fluticasone Yes [id number] 2{spray Use 2 Univers propionate 5-03 } Sprays in ity of 50 00:00: each [place] mcg/actuati 00 nostril Medic al on nasal daily. Branch spray fluticasone Yes [id number] 2{spray Use 2 Univers propionate 5-03 } Sprays in ity of 50 00:00: each [place] mcg/actuati 00 nostril Medic al on nasal daily. Branch spray fluticasone Yes [id number] 2{spray Use 2 Univers propionate 5-03 } Sprays in ity of 50 00:00: each [place] mcg/actuati 00 nostril Medic al on nasal daily. Branch spray fluticasone Yes [id number] 2{spray Use 2 Univers propionate 5-03 } Sprays in ity of 50 00:00: each [place] mcg/actuati 00 nostril Medic al on nasal daily. Branch spray amoxicillin 2021- No [id number] 875mg Take 1 Univers 875 mg 5-03 05-14 tablet by ity of tablet 00:00: 04:59 mouth 2 [place] 00 :00 (two) Medical times Branch daily for 10 days. azithromyci Yes [id number] 500mg Take 1 Univers n 500 mg 5-05 tablet by ity of tablet 00:00: mouth [place] 00 daily. Medical Branch azithromyci Yes [id number] 500mg Take 1 Univers n 500 mg 5-05 tablet by ity of tablet 00:00: mouth [place] 00 daily. Medical Branch azithromyci 0 2021- No [id number] 500mg Take 1 Univers n 500 mg 10-21 tablet by anyi mayer f tablet 00:00: 00:00 mouth [place] 00 :00 daily. Medical Branch Vital Signs Vital Name Observation Time Observation Value Comments Source Systolic blood 2022-06-15 14:46:00 127 mm[Hg] Univer sity of pressure [facility] Diastolic blood 2022-06-15 14:46:00 71 mm[Hg] Unive rsity of pressure [facility] Heart rate 2022-06-15 14:46:00 99 /min Universi ty of [facility] Body temperature 2022-06-15 14:46:00 36.89 Natalia Univ ersity [facility] Branch Respiratory rate 2022-06-15 14:46:00 16 /min Univ ersity of [facility] Body height 2022-06-15 14:46:00 149.9 cm Universi ty of [place] [facility] [place] Body weight 2022-06-15 14:46:00 114.76 kg Universi ty of [place] [facility] BMI 2022-06-15 14:46:00 51.10 kg/m2 Universi ty of [place] [facility] Oxygen saturation in 2022-06-15 14:46:00 100 /min University of Arterial blood by [place] leemail chiquis Pulse oximetry Branch Systolic blood 2022-06-14 17:32:00 144 mm[Hg] Univer sity of [facility] Diastolic blood 2022-06-14 17:32:00 94 mm[Hg] Unive rsity of [facility] Heart rate 2022-06-14 17:32:00 96 /min Universi ty of [place] [facility] Body temperature 2022-06-14 17:32:00 36.89 Natalia Univ ersity of [facility] Branch Respiratory rate 2022-06-14 17:32:00 16 /min Univ ersity of [place] [facility] Body height 2022-06-14 17:32:00 149.9 cm Universi ty of [place] [facility] Body weight 2022-06-14 17:32:00 114.76 kg Universi ty of [place] [facility] BMI 2022-06-14 17:32:00 51.10 kg/m2 Universi ty of [place] [facility] Oxygen saturation in 2022-06-14 17:32:00 100 /min University of Arterial blood by [place] [facility]i chiquis Pulse oximetry Branch Systolic blood 2022-06-13 03:15:00 116 mm[Hg] Univer sity of pressure [place] [facility] Diastolic blood 2022-06-13 03:15:00 71 mm[Hg] Unive rsity of pressure [place] [facility] Heart rate 2022-06-13 03:15:00 78 /min Universi ty of [place] [facility] Respiratory rate 2022-06-13 03:15:00 18 /min Univ ersity of [place] [facility] Oxygen saturation in 2022-06-13 03:15:00 98 /min University of [facility] by [facility] Pulse oxim[facility] Branch Body temperature 2022-06-12 23:29:00 37.11 Natalia Univ ersity of [place] [facility] Body height 2022-06-12 23:29:00 147.3 cm Universi ty of [place] [facility] Body weight 2022-06-12 23:29:00 112.492 kg Universi ty of [place] [facility] BMI 2022-06-12 23:29:00 51.83 kg/m2 Universi ty of [place] [facility] Systolic blood 2022-01-01 20:53:14 137 mm[Hg] Univer sity of pressure [place] [facility] Diastolic blood 2022-01-01 20:53:14 87 mm[Hg] Unive rsity of pressure [place] [facility] Heart rate 2022-01-01 20:53:14 80 /min Universi ty of [place] [facility] Respiratory rate 2022-01-01 20:53:14 19 /min Univ ersity of [place] [facility] Oxygen saturation in 2022-01-01 20:53:14 98 /min University of Arterial blood by [facility] Pulse oximetry Branch Body temperature 2022-01-01 17:59:00 37.56 Natalia Univ ersity of [place] [facility] Body height 2022-01-01 17:59:00 149.9 cm Universi ty of [place] [facility] Body weight 2022-01-01 17:59:00 112.628 kg Universi ty of [place] [facility] BMI 2022-01-01 17:59:00 50.15 kg/m2 Universi ty of [place] [facility] Systolic blood 2021-12-28 22:49:00 130 mm[Hg] Univer sity of pressure [place] [facility] Diastolic blood 2021-12-28 22:49:00 90 mm[Hg] Unive rsity of pressure [place] [facility] [place] Heart rate 2021-12-28 22:48:00 95 /min Universi ty of [place] [facility] Body temperature 2021-12-28 22:48:00 36.89 Natalia Univ ersity of [place] [facility] Respiratory rate 2021-12-28 22:48:00 16 /min Univ ersity of [place] [facility] Body height 2021-12-28 22:48:00 149.9 cm Universi ty of [place] [facility] Body weight 2021-12-28 22:48:00 111.857 kg Universi ty of [place] [facility] BMI 2021-12-28 22:48:00 49.81 kg/m2 Universi ty of [place] [facility] [place] Oxygen saturation in 2021-12-28 22:48:00 97 /min University of [facility] by [facility] Pulse oximetry Branch Systolic blood 2021-10-19 14:55:00 115 mm[Hg] Univer sity of pressure [place] [facility] [place] Diastolic blood 2021-10-19 14:55:00 77 mm[Hg] Unive rsity of pressure [place] [facility] [place] Heart rate 2021-10-19 14:55:00 89 /min Universi ty of [place] [facility] Body temperature 2021-10-19 14:55:00 36.83 Natalia Univ ersity of [facility] Respiratory rate 2021-10-19 14:55:00 20 /min Univ ersity of [place] [facility] Body height 2021-10-19 14:55:00 149.9 cm Universi ty of [place] [facility] Body weight 2021-10-19 14:55:00 110.269 kg Universi ty of [place] [facility] BMI 2021-10-19 14:55:00 49.10 kg/m2 Universi ty of [place] [facility] Oxygen saturation in 2021-10-19 14:55:00 98 /min University of [facility]terial blood by [facility] Pulse oximetry Branch Procedures Procedure Date / Time Performing Clinician Source Performed POCT GLUCOSE (AUTOMATED) 2022-06-15 15:19:00 [place] Brooke [facility] [place] [facility] CONSENT/REFUSAL FOR 2022-06-15 14:40:02 Doctor Unassigned, Unive [facility] DIAGNOSIS AND TREATMENT [facility] Branch POCT GLUCOSE (AUTOMATED) 2022-06-14 17:51:00 Yuki Snider [facility] CONSENT/REFUSAL FOR 2022-06-14 17:29:20 Doctor Unassigned, [facility] DIAGNOSIS [facility] POCT TEST 2022-06-13 01:24:00 Bryan Kilpatrick [facility] COMP. METABOLIC PANEL 2022-06-13 01:20:00 Shonna [facility] ([id number]) [facility] CBC WITH DIFF 2022-06-13 01:20:00 Shonna [facility] URINALYSIS 2022-06-13 01:20:00 [facility] POCT GLUCOSE (AUTOMATED) 2022-06-12 23:27:00 Bryan Kil[facility] CONSENT/REFUSAL FOR 2022-06-12 22:56:38 Doctor Unassigned, [facility] DIAGNOSIS AND TREATMENT [facility] CT HEAD WO CONTRAST 2022-01-01 19:08:00 Roxie Kapoor [facility] AC PANEL 21 + LACTIC ACID 2022-01-01 18:40:00 [facility] 2022-01-01 18:38:00 Antwon Roxie [facility] AMMONIA, PLASMA 2022-01-01 18:38:00 Antwon Roxie [facility] TROPONIN I 2022-01-01 18:38:00 Roxie Kapoor [facility] FREE T4 2022-01-01 18:38:00 Roxie Kapoor [facility] THYROID STIMULATING 2022-01-01 18:38:00 Roxie Kapoor [facility] HORMONE [facility] COMP. METABOLIC PANEL 2022-01-01 18:38:00 Roxie Kapoor [facility] ([id number]) Medical Branch ETHANOL 2022-01-01 18:38:00 Roxie Kapoor [facility] CBC WITH DIFF 2022-01-01 18:38:00 Roxie Kapoor [facility] GLYCOSYLATED HEMOGLOBIN 2022-01-01 18:38:00 Roxie Kapoor [facility] (A1C) [facility] PROTHROMBIN TIME / INR 2022-01-01 18:38:00 Roxie Kapoor [facility] ACTIVATED PARTIAL 2022-01-01 18:38:00 Roxie Kapoor [facility] THRMPLAS LEYDI [facility] URINALYSIS 2022-01-01 18:38:00 Roxie Kaopor Arvilla o f [facility] N-TERMINAL PRO-BNP 2022-01-01 18:38:00 Roxie Kapoor [facility] URINE DRUG (IMMUNOASSAY) 2022-01-01 18:38:00 Roxie Kapoor [facility] DRUG [facility] nch SCREEN W/O REFLEX POCT TEST 2022-01-01 18:37:00 Roxie Kapoor [facility] NOTICE OF PRIVACY 2022-01-01 17:47:43 Doctor Awilda, [facility] PRACTICES [facility] CONSENT/REFUSAL FOR 2022-01-01 17:45:03 Doctor Awilda [facility] DIAGNOSIS AND TREATMENT [facility] POCT MOLECULAR FLU 2021-12-28 23:01:00 Na Shah [facility] POCT MOLECULAR STREP 2021-10-19 15:05:00 Riddhi Cheung [facility] STATEMENT OF PATIENT 2021-10-19 05:01:00 Doctor Awilda, [facility] FINANCIAL RESPONSIBILITY [place] [facility] Encounters Start End Encounter Admission Attending Care Care Encounter Source Date/Time Date/Time Type Type Clinicians Facility Department ID 2022-06-15 2022-06-15 Emergency X EDWARDO [facility] ERT [id number] Univers 08:48:00 09:31:00 MAINE de santiago [facility] 2022-06-15 2022-06-15 Emergency Edwardo [facility] [id number] Univers 08:48:00 09:31:00 Maryaraceli [place] [id number] i [facility] [id number] [facility] [id number] [facility] 084 Branch 2022-06-14 2022-06-14 Emergency X TYLOR [facility] ERT [id number] Univers 11:33:00 13:05:00 YUKI itsavita [facility] 2022-06-14 2022-06-14 Emergency [facility] [id number] Univers 11:33:00 13:05:00 Yuki AMBROSE [id number] i ty of [place]LE 4.2.7.2.686 [facility] [id number] [address] 2022-06-12 2022-06-12 [facility] [id number] Univers 17:31:00 21:24:00 , Bryan AMBROSE [id number] i ty of Yarelis RIVER[place] 4.2.7.2.686 [facility] [id number] [address] 2022-06-12 2022-06-12 Emergency X AUFDERIDE [facility] ERT [id number] Univers 17:31:00 21:24:00 , BRYAN de santiago [facility] 2022-01-01 2022-01-01 Emergency [facility] ERT [id number] Univers 13:01:00 15:56:00 ROXIE savita [facility] 2022-01-01 2022-01-01 Emergency [facility] [id number] Univers 13:01:00 15:56:00 Roxie AMBROSE [id number] i ty of [place] 4.2.7.2.686 [facility] [id number] [address] 2022-01-01 2022-01-01 Emergency X [facility] ERT [id number] Univers 13:01:00 15:56:00 ROXIE de santiago [facility] 2021-12-28 2021-12-28 Outpatient R [facility] [id number] Univers 17:40:00 17:59:13 NA itsavita [facility] 2021-12-28 2021-12-28 Urgent [facility] [id number] Univers 17:40:00 17:59:13 Care [facility] [id number] it y of [place] 4.2.7.2.686 Neel as GORGE?BLEA [id number] [address] OFFICE [facility] 2021-10-19 2021-10-19 Urgent [facility] [id number] Univers 09:20:00 09:40:00 Care [facility] [id number] i ty of [place] 4.2.7.2.686 Neel as GORGE?BLEA [id number] [address] OFFICE [facility] 2021-10-19 2021-10-19 [facility] [id number] Univers 09:20:00 09:20:00 RIDDHI mayer [facility] 2021-10-19 2021-10-19 Orders Doctor JESSICA [id number] Univers 00:00:00 00:00:00 Only Unassigned, ROBERT 350.1.13.10 ity of [facility] 4.2.7.2.686 Neel as [id number] [address] 2021-10-19 2021-10-19 Letter [facility] [id number] Univers 00:00:00 00:00:00 (Out) [facility] [id number] i ty of [place] 4.2.7.2.686 Neel as GORGE?BLEA [id number] [address] 2020-07-17 2020-07-17 [facility] [id number] Univers 16:20:00 16:20:00 VENU alvarez [facility] 2020-07-10 2020-07-10 [facility] [id number] Univers 11:20:00 11:20:00 PADMINI de santiago [facility] 2020-07-02 2020-07-02 [facility] [id number] Univers 17:40:00 17:40:00 VENU alvarez [facility] 2019-10-22 2019-10-22 [facility] [id number] Univers 13:30:00 13:30:00 HAYLEY de santiago [facility] Results Test Description Test Time Test Comments Results Result Comments Source POCT GLUCOSE (AUTOMATED) 2022-06-15 15:23:50 Test Item Value Reference Range Interpretation Comme nts POCT GLU (test code = 8768906225) 156 mg/dL 70-110 H Lab Interpretation (test code = 87738-7) [facility]2022-06-14 17:52:47 Test Item Value Reference Range Interpretation Comments POCT GLU (test code = 2354371380) 162 mg/dL 70-110 H Lab Interpretation (test code = Abnormal 64823-4) [facility] GLUCOSE(AGE >30DAYS)2022-06-14 17:51:00 Test Item Value Reference Range Interpretation Comments POCT Glu (age>30days) (test code = 162 mg/dL 70-110 A 3342) Lab Interpretation (test code = Abnormal 97433-8) [facility] (49699)2022-06-13 01:40:55 Test Item Value Reference Range Interpretation Comments NA (test code = 138 mmol/L 135-145 2034097868) K (test code = 4.1 mmol/L 3.5-5.0 1486986856) CL (test code = 103 mmol/L 98-108 0251386488) CO2 TOTAL (test code = 26 mmol/L 23-31 0041388664) AGAP (test code = 2-16 5719336902) BUN (test code = 10 mg/dL 7-23 9688761523) GLUCOSE (test code = 180 mg/dL 70-110 H 5038402882) CREATININE (test code = 0.41 mg/dL 0.50-1.04 L 4761930645) TOTAL BILI (test code = 0.5 mg/dL 0.1-1.2 9565282499) CALCIUM (test code = 8.8 mg/dL 8.6-10.6 4315784409) T PROTEIN (test code = 6.8 g/dL 6.3-8.2 5905531916) ALBUMIN (test code = 4.2 g/dL 3.5-5.0 9565856461) ALK PHOS (test code = 59 U/L 34-122 2465966775) ALTv (test code = 49 U/L 5-35 H 1742-6) AST(SGOT) (test code = 56 U/L 13-40 H 3103612878) eGFR (test code = mL/min/1.73m2 1455399442) JAYDEN (test code = JAYDEN) Association of [...] tests). Lab Interpretation Abnormal (test code = 27955-4) [facility] WITH [id number] 01:27:37 Test Item Value Reference Range Interpretation Comments WBC (test code = See_Comment [Automated 4962-2) message] The sy stem which generated this [...] (test code = 38.2 fL 39.0-49.9 L 58657-2) RDW-CV (test code = 12.7 % 12.0-15.5 788-0) PLT (test code = See_Comment [Automated 777-3) message] The sy stem which generated this result transmitted reference range : 166 - 358 10*3/ ?L. The reference r delores was not used to interpret this result as normal/abnormal . MPV (test code = 10.9 fL 9.5-12.9 16757-4) NRBC/100 WBC (test See_Comment [Automat ed code = 1834543656) message] The system which generated this result transmitted reference range : 0.0 - 10.0 /100 WBCs. The refer ence range was not u sed to interpret th is result as normal/abnormal . NRBC x10^3 (test code See_Comment [Auto mated = 1752529213) message] The s ystem which generated this result transmitted reference range : 10*3/?L. The reference range was not used to interpret this result as normal/abnormal . GRAN MAT (NEUT) % 56.6 % (test code = 770-8) IMM GRAN % (test code 0.50 % = 6936223033) LYMPH % (test code = 33.2 % 736-9) MONO % (test code = 8.0 % 5905-5) EOS % (test code = 1.0 % 713-8) BASO % (test code = 0.7 % 706-2) GRAN MAT x10^3(ANC) 3.49 10*3/uL 1.88-7.09 (test code = 6455789973) IMM GRAN x10^3 (test 0.03 10*3/uL 0.00-0.06 code = 0166376231) LYMPH x10^3 (test code 2.04 10*3/uL 1.32-3.29 = 731-0) MONO x10^3 (test code 0.49 10*3/uL 0.33-0.92 = 742-7) EOS x10^3 (test code = 0.06 10*3/uL 0.03-0.39 711-2) BASO x10^3 (test code 0.04 10*3/uL 0.01-0.07 = 704-7) Lab Interpretation Abnormal (test code = 68001-9) [facility] [id number] 01:24:00 Test Item Value Reference Range Interpretation Comments POCT PREG (test code = 1605) negative On board controls acceptable with positive C Line (test code = 3574) POCT PREG LOT # (test code = 3575) [id number] POCT PREG TEST DATE (test 09/17/2023 code = 3576) Lab Interpretation (test code = Normal 45567-5) [facility] GLUCOSE (AUTOMATED)2022-06-12 23:34:10 Test Item Value Reference Range Interpretation Comments POCT GLU (test code = 1797912998) 296 mg/dL 70-110 H Lab Interpretation (test code = Abnormal 40203-7) [facility] 20:12:57 Test Item Value Reference Range Interpretation Comments HGB A1C (test code = 8.2 % 4-5.7 H 4548-4) JAYDEN (test code = JAYDEN) Reference RangesNormal: <5.7%Prediabetes: 5.7 - 6.4%Diabetes: > 6.5% Lab Interpretation (test Abnormal code = 87858-1) [facility] [id number] 19:46:18 Test Item Value Reference Range Interpretation Comments TSH (test code = See_Comment [Automated message] [id number]) The system [employer] generated this result transmitted ref erence range: 0.45 - 4 .70 mIU/L. The refe rence range was not u sed to interpret this result as normal/abnor mal. Lab Interpretation (test Normal code = 85033-7) [facility] [id number] 19:33:18 Test Item Value Reference Range Interpretation Comments FREE T4 (test code = See_Comment [Autom ated message] [id number]) The system [employer] generated this result transmitted ref erence range: 0.78 - 2 .20 ng/dL:. The ref erence range was not u sed to interpret this result as normal/abnor mal. Lab Interpretation (test Normal code = 80843-4) [id number] 19:28:16 Test Item Value Reference Interpretation Comments Range TROPONIN I (test 0.003 ng/mL See_Comment [Automated code = 6621545941) message] The system which generated this result [...] biotin. Lab Interpretation Normal (test code = 46667-2) [facility] [id number] 19:24:55 Test Item Value Reference Range Interpretation Comments NT-proBNP (test code 35 pg/mL See_Comment [Autom ated = 4053989390) message] The system which generated this result transmitted reference range : <=125. The reference range was not used to interpret this result as normal/abnormal . JAYDEN (test code = JAYDEN) Biotin has been reported to cause a negative bias, interpret results relative to patient's use of biotin. Lab Interpretation Normal (test code = 98359-8) [facility] 19:24:45 ALCOHOL<10mg/dL01/01/2022 2:24 PM [facility]<10 Fzawbccc96-210 Toxic>100 Depression of OBSERVER HELPER>400 Fatalities [facility]ortedUnMethod[facility]aACTIVATED PARTIAL THRMPLAS LEYDI 2022-01-01 19:23:59 Test Item Value Reference Range Interpretation Comments APTT Patient (test See_Comment [Automat ed code = 3173-2) message] The system which generated this result transmitted reference range : 23 - 38 Seconds . The reference range was not used to interpr et this result as normal/abnormal . JAYDEN (test code = JAYDEN) The [facility] patient population mean normal value for aPTT is 30 seconds. Lab Interpretation Normal (test code = 00493-1) [facility] / [id number] 19:21:59 Test Item Value Reference Range Interpretation Comments PROTIME PATIENT (test See_Comment [Auto mated message] code = 5964-2) The system wh ich generated this result transmitted ref erence range: 12.0 - 1 4.7 Seconds. The re ference range was not u sed to interpret this result as normal/abnor mal. INR (test code = 6301-6) Nor mal INR <1.1; Warfarin Therap eutic range 2.0 to 3. 0 or 2.5 to 3.5, dep ending upon the indica tions. Lab Interpretation (test Normal code = 58028-4) [facility]MON[facility], [id number] 19:18:47 Test Item Value Reference Range Interpretation Comments AMMONIA (test code = 8296243884) 9-33 L Lab Interpretation (test code = Abnormal 67190-8) [facility]20[facility]-16 19:10:59 Test Item Value Reference Range Interpretation Comments MAGNESIUM (test code = 7858492071) 1.7 mg/dL 1.7-2.4 Lab Interpretation (test code = Normal 18921-7) [facility]. METABOLIC PANEL (53162)2022-01-01 19:10:38 Test Item Value Reference Range Interpretation Comments NA (test code = 136 mmol/L 135-145 5679235603) K (test code = 4.6 mmol/L 3.5-5 8009905837) CL (test code = 103 mmol/L 98-108 6602450684) CO2 TOTAL (test code = 23 mmol/L 23-31 4808479043) AGAP (test code = 2-16 3996791612) BUN (test code = 9 mg/dL 7-23 6430464725) GLUCOSE (test code = 282 mg/dL 70-110 H 2131891962) CREATININE (test code = 0.34 mg/dL 0.5-1.04 L 6766056284) TOTAL BILI (test code = 0.5 mg/dL 0.1-1.2 8631183515) CALCIUM (test code = 9.1 mg/dL 8.6-10.6 2575437692) T PROTEIN (test code = 7.1 g/dL 6.3-8.2 9284999629) ALBUMIN (test code = 4.4 g/dL 3.5-5 2690005736) ALK PHOS (test code = 50 U/L 34-122 7107177297) ALTv (test code = 42 U/L 5-35 H 1742-6) AST(SGOT) (test code = 44 U/L 13-40 H 3903607368) eGFR (test code = mL/min/1.73m2 1008722253) JAYDEN (test code = JAYDEN) Association of [...] tests). Lab Interpretation Abnormal (test code = 27781-4) [facility] WITH [id number] 19:03:19 Test Item Value Reference Range Interpretation Comments WBC (test code = See_Comment [Automated 9155-2) message] The sy stem which generated this result transmitted reference range : 4.30 - 11.10 10*3/?L. The reference range was not used to interpret this result as normal/abnormal . RBC (test code = See_Comment [Automated 719-8) message] The sy stem which generated this [...] (test code = 37.7 fL 39-49.9 L 02203-5) RDW-CV (test code = 12.5 % 12-15.5 788-0) PLT (test code = See_Comment [Automated 777-3) message] The sy stem which generated this result transmitted reference range : 166 - 358 10*3/ ?L. The reference r delores was not used to interpret this result as normal/abnormal . MPV (test code = 11.1 fL 9.5-12.9 33625-9) NRBC/100 WBC (test See_Comment [Automat ed code = 2102708922) message] The system which generated this result transmitted reference range : 0.0 - 10.0 /100 WBCs. The refer ence range was not u sed to interpret th is result as normal/abnormal . NRBC x10^3 (test code See_Comment [Auto mated = 3960482533) message] The s ystem which generated this result transmitted reference range : 10*3/?L. The reference range was not used to interpret this result as normal/abnormal . GRAN MAT (NEUT) % 68.2 % (test code = 770-8) IMM GRAN % (test code 0.50 % = 3792262418) LYMPH % (test code = 23.6 % 736-9) MONO % (test code = 6.4 % 5905-5) EOS % (test code = 0.5 % 713-8) BASO % (test code = 0.8 % 706-2) GRAN MAT x10^3(ANC) 4.50 10*3/uL 1.88-7.09 (test code = 3293878520) IMM GRAN x10^3 (test 0.03 10*3/uL 0-0.06 code = 1996455719) LYMPH x10^3 (test code 1.55 10*3/uL 1.32-3.29 = 731-0) MONO x10^3 (test code 0.42 10*3/uL 0.33-0.92 = 742-7) EOS x10^3 (test code = 0.03 10*3/uL 0.03-0.39 711-2) BASO x10^3 (test code 0.05 10*3/uL 0.01-0.07 = 704-7) Lab Interpretation Abnormal (test code = 82293-9) [facility] [id number] 18:37:00 Test Item Value Reference Range Interpretation Comments POCT PREG (test code = 1605) negative On board controls acceptable with present C Line (test code = 3574) POCT PREG LOT # (test code = 3575) [id number] POCT PREG TEST DATE (test 04/18/2023 code = 3576) Lab Interpretation (test code = Normal 18997-5) [facility] MOLECULAR [id number] 23:13:16 Test Item Value Reference Range Interpretation Comments POCT Molecular FluA (test code = Negative Negative 37130-4) POCT Molecular FluB (test code = Negative Negative 34268-4) Lab Interpretation (test code = Normal 45479-7) [facility] MOLECULAR [id number] 15:09:14 Test Item Value Reference Range Interpretation Comments POCT Molecular Strep (test code = Positive Negative A 30026-1) Lab Interpretation (test code = Abnormal 85526-3) [facility]"
[2022-06-15 14:23] LABS: Urine Blood 3+ (Negative); Urine Glucose Negative (Negative); Urine Protein 1+ (Negative); Urine Specific Gravity >=1.030 (1.005-1.030); Urine pH 5.5 (5.0-7.0)
--- NOTE | 2022-06-15 14:30 | RAD REPORT ---
EXAM DESCRIPTION: CT - Head Brain Wo Cont - 06/15/2022 2:19 pm CLINICAL HISTORY: confusion, electrolyte imbalance COMPARISON: Head Brain Wo Cont dated 06/14/2022 TECHNIQUE: Axial 5 mm thick images of the head were obtained without IV contrast. All CT scans are performed using dose optimization technique as appropriate and may include automated exposure control or mA/KV adjustment according to patient size. FINDINGS: No intracranial hemorrhage, mass, edema or shift of mid-line structures. No acute infarcti on changes seen. No abnormal extra-axial fluid collections. Ventricles are normal. Intracranial findi ngs are similar to the comparison study. Mastoid air cells are underpneumatized. Middle ears are clear. These findings are similar to the comp arison. No acute paranasal sinus finding. No acute bony findings. IMPRESSION: Negative non-contrast CT head examination for acute finding. No significant change from comparison.
[2022-06-15 14:46] LABS: Barbiturates NEGATIVE (NEGATIVE); Benzodiazepines NEGATIVE (NEGATIVE); Cocaine NEGATIVE (NEGATIVE); METHAMPHETAM NEGATIVE (NEGATIVE); Methadone NEGATIVE (NEGATIVE); Opiates NEGATIVE (NEGATIVE); Phencyclidine NEGATIVE (NEGATIVE); THC Cannibis NEGATIVE (NEGATIVE)
[2022-06-15 14:51] LABS: Urine Bacteria None Seen /HPF (<20); Urine Crystals Unidentified Few /HPF (None Seen); Urine Mucus Slight /HPF (None Seen); Urine RBC >50 /HPF (None Seen)
[2022-06-15 14:55] LABS: Absolute Lymphocytes (CBC) 1.5 K/uL (0.7-4.9); Hematocrit 42.8 % (36.0-45.0); Lymphocytes % 20.6 % (15.3-44.8); MCV 84.9 fL (80-100); MPV 8.9 fL (7.6-11.3); RBC Red Blood Cell Count 5.04 M/uL (3.86-4.86)
[2022-06-15 15:22] LABS: Albumin 3.8 g/dL (3.4-5.0); Bilirubin Total 0.5 mg/dL (0.2-1.0); Magnesium 1.8 mg/dL (1.6-2.4); Phosphorus 3.8 mg/dL (2.5-4.9); Potassium 3.8 mmol/L (3.5-5.1); Protein, Total 7.6 g/dL (6.4-8.2); Thyroid Stimulating Hormone 1.27 uIU/mL (0.358-3.740)
[2022-06-15] MEDS ORDERED: NA CHLORIDE 0.9% 1,000 ML ONE (16:03)
--- NOTE | 2022-06-15 16:25 | EDPHYS ---
Physician Documentation [facility] Name: Pam John Age: 22 yrs Sex: Female : 2000 Arrival Date: 06/15/2022 Time: 11:55 Bed DIS1 Private MD: ED Physician Ruddy Gonzales HPI: 06/15 14:13 This 22 yrs old Female presents to ER via Ambulatory with complaints of Doesn't Feel snw Right, confusion. 14:13 Onset: The symptoms/episode began/occurred acutely. Associated signs and symptoms: snw Pertinent positives: abdominal pain, confusion, weakness. Modifying factors: The patient symptoms are alleviated by nothing. It is unknown whether or not the patient has had similar symptoms in the past. The patient has not recently seen a physician, Pt states she does not have a PCP. 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 - Social history:: Smoking status: Patient denies any tobacco usage or history of. ROS: 14:12 Eyes: Negative for injury, pain, redness, and discharge, ENT: Negative for injury, snw pain, and discharge, Neck: Negative for injury, pain, and swelling, Cardiovascular: Negative for chest pain, palpitations, and edema, Respiratory: Negative for shortness of breath, cough, wheezing, and pleuritic chest pain. 14:12 Back: Negative for injury and pain. 14:12 MS/Extremity: Negative for injury and deformity, Skin: Negative for injury, rash, and discoloration. 14:12 Constitutional: Positive for malaise, poor PO intake. 14:12 Abdomen/GI: Positive for abdominal pain. 14:12 : Positive for urinary frequency. 14:12 Neuro: Positive for altered mental status, weakness. 14:12 Psych: Positive for in a fog. Exam: 14:10 Head/Face: Normocephalic, atraumatic. Eyes: Pupils equal round and reactive to light, snw extra-ocular motions intact. Lids and lashes normal. Conjunctiva and sclera are non-icteric and not injected. Cornea within normal limits. Periorbital areas with no swelling, redness, or edema. ENT: Nares patent. No nasal discharge, no septal abnormalities noted. Tympanic membranes are normal and external auditory canals are clear. Oropharynx with no redness, swelling, or masses, exudates, or evidence of obstruction, uvula midline. Mucous membranes moist. Neck: Trachea midline, no thyromegaly or masses palpated, and no cervical lymphadenopathy. Supple, full range of motion without nuchal rigidity, or vertebral point tenderness. No Meningismus. Chest/axilla: Normal chest wall appearance and motion. Nontender with no deformity. No lesions are appreciated. Cardiovascular: Regular rate and rhythm with a normal S1 and S2. No gallops, murmurs, or rubs. Normal PMI, no JVD. No pulse deficits. Respiratory: Lungs have equal breath sounds bilaterally, clear to auscultation and percussion. No rales, rhonchi or wheezes noted. No increased work of breathing, no retractions or nasal flaring. Abdomen/GI: Soft, mildly tender to right lower quad, with normal bowel sounds. No distension or tympany. No guarding or rebound. No evidence of tenderness throughout. Back: No spinal tenderness. No costovertebral tenderness. Full range of motion. Skin: Warm, dry with normal turgor. Normal color with no rashes, no lesions, and no evidence of cellulitis. MS/ Extremity: Pulses equal, no cyanosis. Neurovascular intact. Full, normal range of motion. 14:10 Constitutional: The patient appears awake, anxious, obese. 14:10 Neuro: Orientation: is normal, Mentation: slow to respond, Memory: is normal. 14:10 Psych: Behavior/mood is cooperative, anxious, Affect is flat, Oriented to person, place, time, Patient has no thoughts/intents to harm self or others. Judgement / Insight is impaired. Vital Signs: 12:16 BP 142 / 83; Pulse 98; Resp 14; Temp 97.8(TE); Pulse Ox 99% on R/A; Weight 114.76 kg; ss Height 4 ft. 11 in. (149.86 cm); Pain 0/10; 12:16 Body Mass Index 51.10 (114.76 kg, 149.86 cm) ss MDM: 13:53 Patient medically screened. snw 16:25 Data reviewed: vital signs, nurses notes. Data interpreted: Pulse oximetry: on room air snw is 99 %. Interpretation: normal. Counseling: I had a detailed discussion with the patient and/or guardian regarding: the historical points, exam findings, and any diagnostic results supporting the discharge/admit diagnosis, lab results, radiology results, the need for outpatient follow up, to return to the emergency department if symptoms worsen or persist or if there are any questions or concerns that arise at home. Special discussion: Based on the history and exam findings, there is no indication for further emergent testing or inpatient evaluation. I discussed with the patient/guardian the need to see the primary care provider for further evaluation of the symptoms. 06/15 13:21 Order name: Urine Culture snw 06/15 13:21 Order name: Urine Drug Screen; Complete Time: 14:54 snw 06/15 13:21 Order name: Urine Microscopic Only; Complete Time: 14:54 snw 06/15 13:59 Order name: CBC with Diff; Complete Time: 15:05 snw 06/15 13:59 Order name: CMP; Complete Time: 15:23 snw 06/15 13:59 Order name: Magnesium; Complete Time: 15:23 snw 06/15 13:59 Order name: Phosphorus; Complete Time: 15:23 snw 06/15 13:59 Order name: TSH; Complete Time: 15:23 snw 06/15 14:02 Order name: Acetone, Serum; Complete Time: 15:13 snw 06/15 14:02 Order name: CT Head Brain wo Cont; Complete Time: 14:32 snw 06/15 14:02 Order name: Procalcitonin; Complete Time: 15:32 snw 06/15 14:02 Order name: Lactate w/ 2H reflex if indic.; Complete Time: 15:13 snw 06/15 14:24 Order name: Urine Dipstick-Ancillary; Complete Time: 14:29 EDMS 06/15 13:21 Order name: Urine Dipstick-Ancillary (obtain specimen); Complete Time: 14:44 snw 06/15 13:21 Order name: Urine Test (obtain specimen); Complete Time: 14:44 snw 06/15 14:00 Order name: SL; Complete Time: 16:04 snw 06/15 14:02 Order name: FSBS snw Administered Medications: 16:03 Drug: NS 0.9% 1000 ml Route: IV; Rate: 1 bolus; Site: left antecubital; ph Disposition: 18:03 Co-signature as Attending Physician, Ruddy Gonzales MD I agree with the assessment and rt plan of care. Disposition Summary: 06/15/22 16:24 Discharge Ordered Location: Home snw Condition: Stable snw Diagnosis - Volume depletion, unspecified snw Followup: snw - With: Emergency Department - When: As needed - Reason: Worsening of condition Followup: snw - With: Private Physician - When: 1 - 2 days - Reason: Recheck today's complaints, Continuance of care, Re-evaluation by your physician Discharge Instructions: - Discharge Summary Sheet snw - Dehydration, Adult snw - Rehydration, Adult snw Forms: - Medication Reconciliation Form snw - Thank You Letter snw - Antibiotic Education snw - Prescription Opioid Use snw Signatures: Dispatcher [employer] EDAlberta Hartley FNP-C SOCIAL SCIENCES DEPARTMENT CHAIR-Csnw Gemini Caldwell, ALBERT RN ss Verenice Weston RN RN Ruddy Kirby MD MD rt Corrections: (The following items were deleted from the chart) 12:19 12:18 Home Meds: None; ss
--- NOTE | 2022-06-15 16:25 | ER ---
Nurse's Notes [facility] Name: Pam John Age: 22 yrs Sex: Female : 2000 Arrival Date: 06/15/2022 Time: 11:55 Bed DIS1 Private MD: Diagnosis: Volume depletion, unspecified Presentation: 06/15 12:16 Chief complaint: Patient states: "I'm in a funky mental state, like I feel like I'm in ss a cloud. I'm tired and having a hard time remembering things." Pt reports that these symptoms began on 06/09/22. Pt was seen in ER yesterday for another complaint and states she forgot to mention it to the provider. Coronavirus screen: Client denies travel out of the [place] in the last 14 days. Ebola Screen: Patient denies exposure to infectious person. Patient denies travel to an Ebola-affected area in the 21 days before illness onset. Initial Sepsis Screen: Does the patient meet any 2 criteria? No. Patient's initial sepsis screen is negative. Does the patient have a suspected source of infection? No. Patient's initial sepsis screen is negative. Risk Assessment: Do you want to hurt yourself or someone else? Patient reports no desire to harm self or others. Onset of symptoms was June 09, 2022. 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 - Social history:: Smoking status: Patient denies any tobacco usage or history of. Assessment: 16:18 Reassessment: Pt took out IV and walked out of ER. Alberta, notified. Vital Signs: 12:16 BP 142 / 83; Pulse 98; Resp 14; Temp 97.8(TE); Pulse Ox 99% on R/A; Weight 114.76 kg; ss Height 4 ft. 11 in. (149.86 cm); Pain 0/10; 12:16 Body Mass Index 51.10 (114.76 kg, 149.86 cm) ED Course: 11:55 Patient arrived in ED. am2 12:18 Triage completed. ss 12:18 Arm band placed on right wrist. ss 13:11 Alberta Grace FNP-C is [facility]. snw 13:11 Ruddy Gonzales MD is Attending Physician. snw 14:20 CT Head Brain wo Cont In Process Unspecified. EDMS 14:44 Urine Microscopic Only Sent. rs5 14:44 TSH Sent. rs5 14:44 Magnesium Sent. rs5 14:44 CMP Sent. rs5 14:44 CBC with Diff Sent. rs5 14:44 Urine Drug Screen Sent. rs5 14:44 Procalcitonin Sent. rs5 14:44 Lactate w/ 2H reflex if indic. Sent. rs5 14:52 Urine Culture Sent. rs5 15:37 Inserted saline lock: 20 gauge in left antecubital area, using aseptic technique. Blood rs5 collected. Administered Medications: 16:03 Drug: NS 0.9% 1000 ml Route: IV; Rate: 1 bolus; Site: left antecubital; ph Outcome: 16:24 Discharge ordered by . snw 16:36 Patient left the ED. Signatures: Dispatcher [employer] EDMS Alberta Grace FNP-C FIELD AGENT-Gemini Stratton, RN RN Verenice Weston RN RN Irene Hawkins Ricky rs5 Corrections: (The following items were deleted from the chart) 12:19 12:18 Home Meds: None; ss
[2022-06-15 16:47] VITALS: BP 142/83; TEMP 97.8; O2SAT 99
== END 2022-06-15 16:36 | disposition home or self-care (01) ==
LOC: ER 11:54
DX: E86.9 Volume depletion, unspecified (principal)
CPT/HCPCS: 36415; 70450; 80053; 80307; 81003; 81015; 82010; 83605; 83735; 84100; 84145; 84443; 85025; 87086; 87088; J7030

== ENCOUNTER 2024-08-06 08:43 | Emergency (ER) | payer OTHER ==
--- OUTSIDE RECORDS SUMMARY | 2024-08-06 08:47 | XMS REPORT | Continuity of Care Document ---
Author Name Unknown Address [address] [facility] [place] [address] [facility] Address [address] [facility] [place] [address] Care Team Providers Care Operations Support Professionals Name Role Phone PCP, PATIENT DOES NOT HAVE A Primary Care Physic rica Unavailable Klaudia Herron Attending Clinician Unavailable DANIELA REVELES Attending Clinician Unavailable Anushka DRUPAL WEB DEVELOPERDaniela Attending Clinician [phone] DEVON YAP Attending Clinician Unavail able DEVON YAP Attending Clinician Unavail able Devon Yap MD Attending Clinician RADIOLOGY Attending Clinician Unavailable Nargis Muñoz Attending Clinician [phone] Unknown, Attending Attending Clinician Unavailab NARGIS Crabtree Attending Clinician Unavailable KRISS STEWART Attending Clinician Unavailable KRISS STEWART Attending Clinician Unavailable Azucena Yap MD Attending Clinician [phone] Kriss Stewart DO Attending Clinician [phone] SUJATHA BROOKE Attending Clinician Unavailable Sujatha Ocasio Attending Clinician [phone] YUKI SNIDER Attending Clinician Unavailable Yuki Joe Attending Clinician [phone] Bryan Kilpatrick MD Attending Clinician + BRYAN KILPATRICK Attending Clinician ROXIE Blevins Attending Clinician Unavailable Roxie Kapoor MD Attending Clinician [phone] IRENE SHAH Attending Clinician Unavailable Irene Shah MD Attending Clinician [phone] Milena Proctor Attending Clinician [phone] MILENA CHEUNG Attending Clinician Unavailabl e Doctor Unassigned, [place] Attending Clinician U HAYLEY Torres Attending Clinician Unavailab PADMINI Moore Attending Clinician Unavailable HAYLEY STARKEY Attending Clinician UnaDANIELA Watson Admitting Clinician Unavailable DEVON YAP Admitting Clinician Unavail able ROXIE KAPOOR Admitting Clinician Unavailable Payers Payer Name Policy Type Policy Number Effective Date Expirati on Date Source JERRY Cheema/ SULAIMAN JACOBSON OOO [id number] 2024 00:00:00 [facility] Individual Exchange Benefit Plan [id number] [facility] OOO [id number] MULTIPLAN GENERIC [id number] 2020 00:00:00 Problems Condition Name Condition Details Condition Category Status Onset Date Resolution Date Last Treatment Date Treating Clinician Comments Source [id number] Mixed hyperlipid emia Problem [facility] [id number] Fatty liver Problem [facility] [id number] Turners syndrome Problem [facility] [id number] Nonrheumat ic aortic valve stenosis Problem [facility] Hyperglyce sylvia due to type 2 diabetes mellitus Type 2 diabetes mellitus with hyperglyce sylvia Problem [facility] [id number] FILOMENA (generaliz ed anxiety disorder) Problem [facility] No known active problems No known active problems Disease [facility] Allergies, Adverse Reactions, Alerts Allergy Name Allergy Type Status Severity Reaction(s) Onset Date Inactive Date Treating Clinician Comments Source METOCLOP RAMIDE DRUG INGREDI Active Other-Cmnt 2021-06 00:00: 00 [facility] Metoclop ramide Propensi ty to adverse reaction s Active Other - See comments 2021-06 00:00: 00 Violent towards herself [facility] NO KNOWN ALLERGIE S Drug Class Active [facility] Social History Social Habit Start Date Stop Date Quantity Comments Source Sex Assigned At [facility] History of Tobacco Use [facility] History SDOH Alcohol Std Drinks [facility] History SDOH Alcohol Binge [facility] History SDOH Alcohol Comment [facility] Exposure to SARS-CoV-2 (event) 2022-06-27 00:00:00 2022-07-07 13:42:00 Not sure [facility] Alcoholic beverage intake 2022-07-07 00:00:00 2022-07-07 00:00:00 Lifetime non-drinker (finding) [facility] Tobacco use and exposure 2021-12-28 00:00:00 2021-12-28 00:00:00 Smokeless tobacco non-user [facility] History of Social function 2021-10-19 00:00:00 2021-10-19 00:00:00 [facility] Alcohol intake 2019-10-22 00:00:00 2019-10-22 00:00:00 Lifetime non-drinker (finding) [facility] History SDOH Alcohol Frequency 2019-01-20 00:00:00 2019-01-20 00:00:00 1 [facility] Smoking Status Start Date Stop Date Source Unknown if ever smoked [facility] Never Smoker [facility] Medications Ordered Medication Name Filled Medication Name Start Date Stop Date Current Medication? Ordering Clinician Indication Dosage Frequency Signature (SIG) Comments Components Source cephALEXin 500 mg tablet 07-25 00:00: 00 08-02 05:59 :00 Yes [id number] 500mg Take 1 tablet by mouth in the morning and 1 tablet in the evening. Do all this for 7 days. [facility] pantoprazol e (PROTONIX) injection 80 mg 03-14 15:00: 00 03-14 15:05 :00 No 80mg 80 mg, Slow IV Push, ONCE, 1 dose, On Makenzie 03/14/24 at 1000 [facility] cefTRIAXone (ROCEPHIN) 1,000 mg in NaCl 0.9% (NS) 100 mL MINI-BAG 03-14 14:45: 00 03-14 15:26 :00 No 1000mg 1,000 mg, IV Piggyback, ONCE, 1 dose, On Makenzie 03/14/24 at 0945, Administer over 30 Minutes, 100 mL, Reason for Anti-Infec tive: Documented Infection, Documented Infection Site: Urine, Duration of Therapy: Once (ED) [facility] diphenhydrA MINE:lidoca ine 2% viscous:maa lox 1:1:1 ([facility]) oral suspension 15 mL 03-14 14:45: 00 03-14 14:57 :00 No 15mL 15 mL, Oral, ONCE, 1 dose, On Makenzie 03/14/24 at 0945, Routine [facility] ketorolac (TORADOL) injection 30 mg 03-14 14:00: 00 03-14 13:30 :00 No 30mg 30 mg, Slow IV Push, ONCE, 1 dose, On Makenzie 03/14/24 at 0900, Routine [facility] NaCl 0.9% (NS) bolus infusion 1,000 mL 03-14 14:00: 00 03-14 15:33 :00 No 1000mL at 999 mL/hr, 1,000 mL, IV Infusion, ONCE, 1 dose, On Makenzie 03/14/24 at 0900, STAT [facility] cefdinir 300 mg capsule 03-14 00:00: 00 03-20 04:59 :00 No [id number] 300mg Take 1 capsule by mouth every 12 (twelve) hours for 5 days. [facility] amoxicillin -clavulanat e (AUGMENTIN) 875-125 mg per tablet 1-19 00:00: 00 07-18 05:59 :00 No [id number] 1{tbl} Take 1 tablet by mouth in the morning and 1 tablet in the evening. Do all this for 10 days. [facility] diphenhydrA MINE (BENADRYL) injection 25 mg 2021-06 02:00: 00 06-13 01:55 :00 No 25mg 25 mg, Slow IV Push, ONCE, 1 dose, On 06/12/22 at 2000, STAT [facility] dexamethaso ne sod phos PF injection 10 mg 2021-06 02:00: 00 06-13 01:55 :00 No 10mg 10 mg, Slow IV Push, ONCE, 1 dose, On 06/12/22 at 2000, 1 mL [facility] acetaminoph en (TYLENOL) tablet 1,000 mg 2021-06 00:30: 00 06-13 01:23 :00 No 1000mg 1,000 mg, Oral, ONCE, 1 dose, On 06/12/22 at 1830, Routine [facility] diphenhydrA MINE (BENADRYL) injection 25 mg 2021-06 00:00: 00 06-13 01:26 :00 No 25mg 25 mg, Slow IV Push, ONCE, 1 dose, On 06/12/22 at 1800, STAT [facility] metoclopram cheryl HCl (REGLAN) injection 10 mg 2021-06 00:00: 00 06-13 01:24 :00 No 10mg 10 mg, Slow IV Push, ONCE, 1 dose, On 06/12/22 at 1800, AMADO [facility] NaCl 0.9% (NS) bolus infusion 1,000 mL 2021-06 00:00: 00 06-13 02:31 :00 No 1000mL at 999 mL/hr, 1,000 mL, IV Infusion, ONCE, 1 dose, On 06/12/22 at 1800, STAT [facility] metFORMIN 500 mg tablet 01-01 00:00: 00 Yes [id number] 500mg Take 1 tablet by mouth in the morning and 1 tablet in the evening. [facility] ondansetron 4 mg disintegrat ing tablet 12-28 00:00: 00 Yes [id number] 4mg Take 1 tablet by mouth every 8 (eight) hours as needed for Nausea and Vomiting (N/V). [facility] norgestimat e-ethinyl estradiol (SPRINTEC, 28, ORAL) 10-19 09:56: 39 Yes Take by mouth. [facility] fluticasone propionate 50 mcg/actuati on nasal spray 10-19 00:00: 00 Yes [id number] 2{spray } Use 2 Sprays in each nostril daily. [facility] amoxicillin 875 mg tablet 10-19 00:00: 00 10-30 04:59 :00 No [id number] 875mg Take 1 tablet by mouth 2 (two) times daily for 10 days. [facility] azithromyci n 500 mg tablet 10-21 00:00: 00 12-28 00:00 :00 No [id number] 500mg Take 1 tablet by mouth daily. [facility] glipiZIDE 10 MG glipiZIDE 10 MG No BID glipiZIDE 10 MG Rosuvastati n Calcium 20 MG Rosuvastati n Calcium 20 MG No 1{table t} QD Rosuvastat in Calcium 20 MG Citalopram Hydrobromid e 10 MG Citalopram Hydrobromid e 10 MG No 1{table t} QD Citalopram Hydrobromi de 10 MG metFORMIN HCl 1000 MG metFORMIN HCl 1000 MG No 1{table t_with_ a_meal} BID metFORMIN HCl 1000 MG Immunizations Ordered Immunization Name Filled Immunization Name Date Status Comments Source Fluarix (IIV4) - SDS - 0.5mL Fluarix (IIV4) - SDS - 0.5mL Unknown Completed [facility] Fluarix (IIV4) - SDS - 0.5mL Fluarix (IIV4) - SDS - 0.5mL Unknown Completed [facility] Fluarix (IIV4) - SDS - 0.5mL Fluarix (IIV4) - SDS - 0.5mL Unknown Completed [facility] Fluarix (IIV4) - SDS - 0.5mL Fluarix (IIV4) - SDS - 0.5mL Unknown Completed Common [facility] Vital Signs Vital Name Observation Time Observation Value Comments Bandar bradford Systolic blood pressure 2024-07-25 20:13:00 121 mm[Hg] [facility] Diastolic blood pressure 2024-07-25 20:13:00 66 mm[Hg] [facility] Heart rate 2024-07-25 20:13:00 103 /min [facility] Body temperature 2024-07-25 20:13:00 37 Natalia [facility] Respiratory rate 2024-07-25 20:13:00 15 /min [facility] Body height 2024-07-25 20:13:00 149.9 cm [facility] Body weight 2024-07-25 20:13:00 116.121 kg [facility] BMI 2024-07-25 20:13:00 51.71 kg/m2 [facility] Oxygen saturation in Arterial blood by Pulse oximetry 2024-07-25 20:13:00 97 /min [facility] Systolic blood pressure 2024-03-14 16:00:00 109 mm[Hg] [facility] Diastolic blood pressure 2024-03-14 16:00:00 89 mm[Hg] [facility] Heart rate 2024-03-14 16:00:00 98 /min [facility] Body temperature 2024-03-14 16:00:00 36.83 Natalia [facility] Oxygen saturation in Arterial blood by Pulse oximetry 2024-03-14 16:00:00 98 /min [facility] Respiratory rate 2024-03-14 12:57:00 16 /min [facility] Body height 2024-03-14 12:57:00 149.9 cm [facility] Body weight 2024-03-14 12:57:00 116.121 kg [facility] BMI 2024-03-14 12:57:00 51.71 kg/m2 [facility] weight 2023-05-30 13:40:00 266 [lb_av] Comm [facility] temperature 2023-05-30 13:40:00 97.8 [degF] Com [facility] bmi 2023-05-30 13:40:00 69.16 kg/m2 [facility] oximetry 2023-05-30 13:40:00 98 % [facility] respiratory rate 2023-05-30 13:40:00 17 /min [facility] blood pressure systolic 2023-05-30 13:40:00 130 mm[Hg] Common [facility] blood pressure diastolic 2023-05-30 13:40:00 76 mm[Hg] [facility] height 2023-05-30 13:40:00 52 [in_i] Commo n [facility] height 2023-03-28 13:00:00 52 [in_i] [facility] weight 2023-03-28 13:00:00 265 [lb_av] Comm on [facility] bmi 2023-03-28 13:00:00 68.9 kg/m2 [facility] oximetry 2023-03-02 16:00:00 98 % [facility] respiratory rate 2023-03-02 16:00:00 16 /min [facility] blood pressure systolic 2023-03-02 16:00:00 138 mm[Hg] Common [facility] blood pressure diastolic 2023-03-02 16:00:00 82 mm[Hg] [facility] height 2023-03-02 16:00:00 52 [in_i] [facility] weight 2023-03-02 16:00:00 266.8 [lb_av] Co mmon [facility] temperature 2023-03-02 16:00:00 97.7 [degF] Com mon [facility] bmi 2023-03-02 16:00:00 69.36 kg/m2 [facility] height 2022-10-25 16:00:00 52 [in_i] [facility] weight 2022-10-25 16:00:00 259.3 [lb_av] Co [facility] temperature 2022-10-25 16:00:00 98.0 [degF] Com mon [facility] bmi 2022-10-25 16:00:00 67.41 kg/m2 [facility] oximetry 2022-10-25 16:00:00 98 % [facility] respiratory rate 2022-10-25 16:00:00 16 /min [facility] blood pressure systolic 2022-10-25 16:00:00 122 mm[Hg] Common [facility] blood pressure diastolic 2022-10-25 16:00:00 78 mm[Hg] [facility] Heart rate 2022-07-07 19:55:00 119 /min [facility] Systolic blood pressure 2022-07-07 19:47:00 128 mm[Hg] [facility] Diastolic blood pressure 2022-07-07 19:47:00 81 mm[Hg] [facility] Body temperature 2022-07-07 19:47:00 36.67 Natalia [facility] Respiratory rate 2022-07-07 19:47:00 20 /min [facility] Oxygen saturation in Arterial blood by Pulse oximetry 2022-07-07 19:47:00 97 /min [facility] Systolic blood pressure 2022-06-16 10:40:00 126 mm[Hg] [facility] Diastolic blood pressure 2022-06-16 10:40:00 82 mm[Hg] [facility] Heart rate 2022-06-16 10:40:00 106 /min [facility] Body temperature 2022-06-16 10:40:00 36.94 Natalia [facility] Respiratory rate 2022-06-16 10:40:00 18 /min [facility] Body height 2022-06-16 10:40:00 149.9 cm [facility] Body weight 2022-06-16 10:40:00 116.574 kg [facility] BMI 2022-06-16 10:40:00 51.91 kg/m2 [facility] Oxygen saturation in Arterial blood by Pulse oximetry 2022-06-16 10:40:00 98 /min [facility] Systolic blood pressure 2022-06-15 14:46:00 127 mm[Hg] [facility] Diastolic blood pressure 2022-06-15 14:46:00 71 mm[Hg] [facility] Heart rate 2022-06-15 14:46:00 99 /min Unive [facility] Body temperature 2022-06-15 14:46:00 36.89 Natalia [facility] Respiratory rate 2022-06-15 14:46:00 16 /min [facility] Body height 2022-06-15 14:46:00 149.9 cm Univ [facility] Body weight 2022-06-15 14:46:00 114.76 kg [facility] BMI 2022-06-15 14:46:00 51.10 kg/m2 [facility] Oxygen saturation in Arterial blood by Pulse oximetry 2022-06-15 14:46:00 100 /min [facility] Systolic blood pressure 2022-06-14 17:32:00 144 mm[Hg] [facility] Diastolic blood pressure 2022-06-14 17:32:00 94 mm[Hg] [facility] Heart rate 2022-06-14 17:32:00 96 /min Unive [facility] Body temperature 2022-06-14 17:32:00 36.89 Natalia [facility] Respiratory rate 2022-06-14 17:32:00 16 /min [facility] Body height 2022-06-14 17:32:00 149.9 cm [facility] Body weight 2022-06-14 17:32:00 114.76 kg [facility] BMI 2022-06-14 17:32:00 51.10 kg/m2 [facility] Oxygen saturation in Arterial blood by Pulse oximetry 2022-06-14 17:32:00 100 /min [facility] Systolic blood pressure 2022-06-13 03:15:00 116 mm[Hg] [facility] Diastolic blood pressure 2022-06-13 03:15:00 71 mm[Hg] [facility] Heart rate 2022-06-13 03:15:00 78 /min Unive [facility] Respiratory rate 2022-06-13 03:15:00 18 /min [facility] Oxygen saturation in Arterial blood by Pulse oximetry 2022-06-13 03:15:00 98 /min [facility] Body temperature 2022-06-12 23:29:00 37.11 Natalia [facility] Body height 2022-06-12 23:29:00 147.3 cm [facility] Body weight 2022-06-12 23:29:00 112.492 kg [facility] BMI 2022-06-12 23:29:00 51.83 kg/m2 [facility] Systolic blood pressure 2022-01-01 20:53:14 137 mm[Hg] [facility] Diastolic blood pressure 2022-01-01 20:53:14 87 mm[Hg] [facility] Heart rate 2022-01-01 20:53:14 80 /min [facility] Respiratory rate 2022-01-01 20:53:14 19 /min [facility] Oxygen saturation in Arterial blood by Pulse oximetry 2022-01-01 20:53:14 98 /min [facility] Body temperature 2022-01-01 17:59:00 37.56 Natalia [facility] Body height 2022-01-01 17:59:00 149.9 cm [facility] Body weight 2022-01-01 17:59:00 112.628 kg [facility] BMI 2022-01-01 17:59:00 50.15 kg/m2 [facility] Systolic blood pressure 2021-12-28 22:49:00 130 mm[Hg] [facility] Diastolic blood pressure 2021-12-28 22:49:00 90 mm[Hg] [facility] Heart rate 2021-12-28 22:48:00 95 /min [facility] Body temperature 2021-12-28 22:48:00 36.89 Natalia [facility] Respiratory rate 2021-12-28 22:48:00 16 /min [facility] Body height 2021-12-28 22:48:00 149.9 cm [facility] Body weight 2021-12-28 22:48:00 111.857 kg [facility] BMI 2021-12-28 22:48:00 49.81 kg/m2 [facility] Oxygen saturation in Arterial blood by Pulse oximetry 2021-12-28 22:48:00 97 /min [facility] Systolic blood pressure 2021-10-19 14:55:00 115 mm[Hg] [facility] Diastolic blood pressure 2021-10-19 14:55:00 77 mm[Hg] [facility] Heart rate 2021-10-19 14:55:00 89 /min [facility] Body temperature 2021-10-19 14:55:00 36.83 Natalia [facility] Respiratory rate 2021-10-19 14:55:00 20 /min [facility] Body height 2021-10-19 14:55:00 149.9 cm [facility] Body weight 2021-10-19 14:55:00 110.269 kg [facility] BMI 2021-10-19 14:55:00 49.10 kg/m2 [facility] Oxygen saturation in Arterial blood by Pulse oximetry 2021-10-19 14:55:00 98 /min [facility] Procedures Procedure Date / Time Performed Performing Clinician Source XR WRIST 3+ VW RIGHT 2024-07-25 20:50:30 Sharad Reveles [facility] XR ABDOMEN 2 VW 2024-03-14 15:28:57 Devon Yap Pet er [facility] US GALL BLADDER 2024-03-14 14:25:00 Devon Yap Pet er [facility] LIPASE 2024-03-14 13:36:00 Devon Yap [facility] COMP. METABOLIC PANEL ([id number]) 2024-03-14 13:36:00 Devon Yap [facility] CBC WITH DIFF 2024-03-14 13:36:00 Devon Yap [facility] URINALYSIS 2024-03-14 13:36:00 Devon Yap [facility] POCT TEST 2024-03-14 13:25:00 Devon Yap [facility] CREATINE KINASE 2022-06-16 11:00:00 [facility], SERUM 2022-06-16 11:00:00 Kalpesh Yap [facility] THYROID STIMULATING HORMONE 2022-06-16 11:00:00 Azucena Yap [facility] COMP. METABOLIC PANEL ([id number]) 2022-06-16 11:00:00 Azucena Yap [facility] SALICYLATE 2022-06-16 11:00:00 Azucena Yap [facility] ETHANOL 2022-06-16 11:00:00 Azucena Yap [facility] CBC WITH DIFF 2022-06-16 11:00:00 Azucena Yap [facility] COVID-19 (ID NOW RAPID TESTING) 2022-06-16 11:00:00 Azucena Yap [facility] URINE DRUG (IMMUNOASSAY) - COMPREHENSIVE DRUG SCREEN W/O REFLEX 2022-06-16 11:00:00 Azucena Yap [facility] CONSENT/REFUSAL FOR DIAGNOSIS AND TREATMENT 2022-06-16 10:25:40 Doctor Unassigned, [place] [facility] POCT GLUCOSE (AUTOMATED) 2022-06-15 15:19:00 Elieser Brooke [facility] CONSENT/REFUSAL FOR DIAGNOSIS AND TREATMENT 2022-06-15 14:40:02 Doctor Unassigned, [place] [facility] POCT GLUCOSE (AUTOMATED) 2022-06-14 17:51:00 Fran Snider [facility] CONSENT/REFUSAL FOR DIAGNOSIS AND TREATMENT 2022-06-14 17:29:20 Doctor Unassigned, [place] [facility] POCT TEST 2022-06-13 01:24:00 Bryan Barrios [facility] COMP. METABOLIC PANEL ([id number]) 2022-06-13 01:20:00 Bryan Kilpatrick [facility] CBC WITH DIFF 2022-06-13 01:20:00 Bryan Kilpatrick [facility] URINALYSIS 2022-06-13 01:20:00 Bryan Kilpatrick [facility] POCT GLUCOSE (AUTOMATED) 2022-06-12 23:27:00 Bryan Zepeda [facility] CONSENT/REFUSAL FOR DIAGNOSIS AND TREATMENT 2022-06-12 22:56:38 Doctor Unassigned, [place] [facility] CT HEAD WO CONTRAST 2022-01-01 19:08:00 Zan Kapoor [facility] AC PANEL 21 + LACTIC ACID 2022-01-01 18:40:00 Roxie Kapoor [facility] MAGNESIUM 2022-01-01 18:38:00 Roxie Kapoor [facility] AMMONIA, PLASMA 2022-01-01 18:38:00 [facility] TROPONIN [facility] 2022-01-01 18:38:00 Roxie Kapoor [facility] FREE T4 2022-01-01 18:38:00 Roxie Kapoor [facility] THYROID STIMULATING HORMONE 2022-01-01 18:38:00 Roxie Kapoor [facility] COMP. METABOLIC PANEL ([id number]) 2022-01-01 18:38:00 Roxie Kapoor [facility] ETHANOL 2022-01-01 18:38:00 Roxie Kapoor [facility] CBC WITH DIFF 2022-01-01 18:38:00 Roxie Kapoor [facility] GLYCOSYLATED HEMOGLOBIN (A1C) 2022-01-01 18:38:00 Roxie Kapoor [facility] PROTHROMBIN TIME / INR 2022-01-01 18:38:00 Adrián Kapoor [facility] ACTIVATED PARTIAL THRMPLAS LEYDI 2022-01-01 18:38:00 Roxie Kapoor [facility] URINALYSIS 2022-01-01 18:38:[address] N-TERMINAL PRO-BNP 2022-01-01 18:38:00 Roxie Kapoor [facility] URINE DRUG (IMMUNOASSAY) - COMPREHENSIVE DRUG SCREEN W/O REFLEX 2022-01-01 18:38:00 Roxie Kapoor [facility] POCT TEST 2022-01-01 18:37:00 Zan Kapoor [facility] NOTICE OF PRIVACY PRACTICES 2022-01-01 17:47:43 Doctor Unassigned, [place] [facility] CONSENT/REFUSAL FOR DIAGNOSIS AND TREATMENT 2022-01-01 17:45:03 Doctor Unassigned, [place] [facility] POCT MOLECULAR FLU 2021-12-28 23:01:00 [facility]REP 2021-10-19 15:05:00 Dawna Cheung [facility] STATEMENT OF PATIENT FINANCIAL RESPONSIBILITY 2021-10-19 05:01:00 Doctor Unassigned, [place] [facility] Encounters Start Date/Time End Date/Time Encounter Type Admission Type Attending [facility] Care Facility Care Department Encounter ID Source 2024-08-01 14:44:01 Outpatient [facility] [id number] [facility] 2024-07-31 13:45:00 Outpatient [facility] [id number] [facility] 2024-07-30 08:45:00 Outpatient Germaine Klaudia [facility] [id number] [facility] 2023-06-28 11:18:01 Outpatient Klaudia Herron [facility] [id number] [facility] 2023-05-26 10:21:00 Outpatient Klaudia Herron [facility] [id number] [facility] 2023-03-24 09:07:00 Outpatient HerronKlaudia [facility] [id number] [facility] 2023-02-28 09:46:01 Outpatient HerronKlaudia [facility] [id number] [facility] 2023-02-27 13:39:01 Outpatient HerronKlaudia [facility] [id number] [facility] 2023-01-24 14:11:00 Outpatient HerronKlaudia [facility] [id number] [facility] 2022-12-19 07:31:00 Outpatient HerronKlaudia hernandez [facility] [id number] [facility] 2022-10-25 15:51:02 Outpatient HerronKlaudiaHARLEEN [facility] [id number] [facility] 2022-10-21 09:38:02 Outpatient HerronKlaudia hernandez STJEFFERY [facility] [id number] [facility] 2022-10-19 08:22:02 Outpatient HerronKlaudia hernandez [facility] [id number] [facility] 2022-10-18 13:43:01 [facility] [id number] [facility] 2024-07-25 14:22:00 2024-07-25 16:16:00 Emergency X ANUSHKA DANIELA [facility] ERT [id number] [facility] 2024-07-25 14:22:00 2024-07-25 16:16:00 Emergency Anushka, Daniela [facility] 1.2.840.114 350.1.13.10 4.2.7.2.686 [id number] [facility] 2024-07-22 00:00:00 2024-07-22 00:00:00 (TEL) STLMLC STLMLC [id number] [facility] 2024-03-14 07:59:00 2024-03-14 11:11:00 Emergency X DEVON YAP JOSEPH [facility] ERT [id number] [facility] 2024-03-14 07:59:00 2024-03-14 11:11:00 Emergency Devon Yap [facility] 1.2.840.114 350.1.13.10 4.2.7.2.686 [id number] [facility] 2023-05-30 00:00:00 2023-05-30 00:00:00 OFFICE VISIT ESTAB PT LEVEL 4 STLMLC STLMLC [id number] [facility] 2023-03-28 00:00:00 2023-03-28 00:00:00 OFFICE VISIT ESTAB PT LEVEL 4 STLMLC STLMLC [id number] [facility] 2023-03-06 00:00:00 2023-03-06 00:00:00 (TEL) STLMLC STLMLC [id number] [facility] 2023-03-02 00:00:00 2023-03-02 00:00:00 OFFICE VISIT ESTAB PT LEVEL 4 STLMLC STLMLC [id number] [facility] 2023-01-11 00:00:00 2023-01-11 00:00:00 (TEL) STLMLC STLMLC [id number] [facility] 2022-12-28 00:00:00 2022-12-28 00:00:00 (TEL) STLMLC STLMLC [id number] [facility] 2022-11-21 00:00:00 2022-11-21 00:00:00 Outpatient R RADIOLOGY [facility] [id number] [facility] 2022-10-25 00:00:00 2022-10-25 00:00:00 OFFICE VISIT ESTAB PT LEVEL 4 STLMLC STLMLC [id number] [facility] 2022-07-07 13:40:00 2022-07-07 14:00:00 Urgent Care Nargis Boyd Unknown, Attending [facility] 1..840.114 350.1.13.10 4.2.7.2.686 [id number] [facility] 2022-07-07 13:40:00 2022-07-07 13:40:00 Outpatient R NARGIS BOYD [facility] [id number] [facility] 2022-07-07 00:00:00 2022-07-07 00:00:00 Letter (Out) Abel Boyddevaughn [facility] 1.840.114 350.1.13.10 4.2.7.2.686 [id number] [facility] 2022-06-16 04:48:00 2022-06-16 10:00:00 Emergency [facility] [id number] [facility] 2022-06-16 04:48:00 2022-06-16 10:00:00 Emergency Azucena Yap [facility] 1..840.114 350.1.13.10 4.2.7.2.686 [id number] [facility] 2022-06-15 08:48:00 2022-06-15 09:31:00 Emergency X SUJATHA BROOKE [facility] ERT [id number] [facility] 2022-06-15 08:48:00 2022-06-15 09:31:00 Emergency Sujatha Brooke [facility] 1.840.114 350.1.13.10 4.2.7.2.686 [id number] [facility] 2022-06-14 11:33:00 2022-06-14 13:05:00 Emergency X YUKI SNIDER [facility] ERT [id number] [facility] 2022-06-14 11:33:00 2022-06-14 13:05:00 Emergency Yuki Snider [facility] 1.2.840.114 350.1.13.10 4.2.7.2.686 [id number] [facility] 2022-06-12 17:31:00 2022-06-12 21:24:00 Emergency Bryan Kilpatrick [facility] 1.2.840.114 350.1.13.10 4.2.7.2.686 [id number] [facility] 2022-06-12 17:31:00 2022-06-12 21:24:00 Emergency X BRYAN KILPATRICK [facility] ERT [id number] [facility] 2022-01-01 13:01:00 2022-01-01 15:56:00 Emergency X ROXIE KAPOOR [facility] ERT [id number] [facility] 2022-01-01 13:01:00 2022-01-01 15:56:00 Emergency Antwon Roxie [facility] 1.2.840.114 350.1.13.10 4.2.7.2.686 [id number] [facility] 2022-01-01 13:01:00 2022-01-01 15:56:00 Emergency X ANTWON ROXIE [facility] ERT [id number] [facility] 2021-12-28 17:40:00 2021-12-28 17:59:13 Outpatient R IRENE SHAH [facility] [id number] [facility] 2021-12-28 17:40:00 2021-12-28 17:59:13 [facility] 1.2.840.114 350.1.13.10 4.2.7.2.686 [id number] [facility] 2021-10-19 09:20:00 2021-10-19 09:40:00 [facility] 1.2840.114 350.1.13.10 4.2.7.2.686 [id number] [facility] 2021-10-19 09:20:00 2021-10-19 09:20:00 Outpatient R JON[facility]AN [facility] [id number] [facility] 2021-10-19 00:00:00 2021-10-19 00:00:00 Orders Only Doctor Unassigned, [place] [facility] 1.2840.114 350.1.13.10 4.2.7.2.686 [id number] [facility] 2021-10-19 00:00:00 2021-10-19 00:00:00 [facility] (Out[facility] 1.2.840.114 350.1.13.10 4.2.7.2.686 [id number] [facility] 2020-07-19 00:00:00 2020-07-19 00:00:00 Patient Secure Msg Doctor Unassigned, [place] [facility] 1.2840.114 350.1.13.10 4.2.7.2.686 [id number] [facility] 2020-07-17 16:20:00 2020-07-17 16:20:00 Outpatient R HAYLEY MUIR [facility] [id number] [facility] 2020-07-10 11:20:00 2020-07-10 11:20:00 Outpatient R PADMINI PURVIS [facility] [id number] [facility] 2020-07-02 17:40:00 2020-07-02 17:40:00 Outpatient R HAYLEY MUIR [facility] [id number] [facility] 2019-10-22 13:30:00 2019-10-22 13:30:00 Outpatient R HAYLEY STARKEY [facility] [id number] [facility] Results Test Description Test Time Test Comments Results Resul t Comments Source XR Wrist 3+ vw right 6 20:56:36 EXAM: XR WRIST 3+ VW RIGHT HISTORY: acute right wrist pain COMPARISON: None. FINDINGS: No acute fracture or dislocation is seen. Joint spaces are preserved. Ulnarminus variance is noted. There is soft tissue swelling about the wrist andhand. [facility] XR ABDOMEN 2 VW 2024-02-19 6 15:33:28 EXAM: XR ABDOMEN 2 VW 03/14/2024 10:10 AM COMPARISON: None available. HISTORY: abdominal pain ?constipation ?obstruction FINDINGS:The bowel gas pattern is normal. A small to moderate volume of stool ispresent within ascending and descending colon. No calcified renal stone isseen. ? No acute osseous abnormality. [facility] US GALL BLADDER 2024-02-19 6 14:27:45 HISTORY: RUQ Abdominal pain. TECHNIQUE: Gallbladder is evaluated in multiple planes with the patient indifferent positions. Color imaging is utilized. FINDINGS: Gallbladder is of normal size and shape with no edema orthickening of the reeves. No gallstones. No biliary sludge or crystals seen.No free fluid detected in pericholecystic space. Common hepatic duct is 2.6mm. Hepatic and portal venous system appeared patent. CONCLUSION: [facility]. [facility]* Test Item Value Reference Range Interpretation Comme nts LIPASE (test code = 8341606733) 54 U/L 0-220 Lab Interpretation (test cod e = 25847-4) Normal [facility] Tkax1970-22-29 13:54:22* Test Item Value Reference Range Interpretation Comme nts WBC (test code = 6690-2) 8.27 4.30-11.10 RBC (test code = 789-8) 5.13 3.93-5.25 HGB (test code = 718-7) 15.7 g/dL 11.6-15.0 H HCT (test code = 4544-3) 44.6 % 35.7-45.2 MCV (test code = 787-2) 86.9 fL 80.6-95.5 MCH (test code = 785-6) 30.6 pg 25.9-32.8 MCHC (test code = 786-4) 35.2 g/dL 31.6-35.1 H RDW-SD (test code = 06175-9) 40.3 fL 39.0-49.9 RDW-CV (test code = 788-0) 13.0 % 12.0-15.5 PLT (test code = 777-3) 220 166-358 MPV (test code = 20024-3) 11.2 fL 9.5-12.9 NRBC/100 WBC (test code = 2458300664) 0.0 0.0-10.0 NRBC x10^3 (test code = 3457906188) See_Comment [Automated messa ge] The system which generated this result transmitted reference range: 10*3/?L. The reference range was not used to interpret this result as normal/abnormal. GRAN MAT (NEUT) % (test code = 770-8) 70.4 % IMM GRAN % (test code = 3931864024) 0.20 % LYMPH % (test code = 736-9) 21.6 % MONO % (test code = 5905-5) 6.7 % EOS % (test code = 713-8) 0.6 % BASO % (test code = 706-2) 0.5 % GRAN MAT x10^3(ANC) (test code = 2874103250) 5.82 10*3/uL 1.88-7.09 IMM GRAN x10^3 (test code = 0783196841) 0.00-0.06 LYMPH x10^3 (test code = 731-0) 1.79 10*3/uL 1.32-3.29 MONO x10^3 (test code = 742-7) 0.55 10*3/uL 0.33-0.92 EOS x10^3 (test code = 711-2) 0.05 10*3/uL 0.03-0.39 BASO x10^3 (test code = 704-7) 0.04 10*3/uL 0.01-0.07 Lab Interpretation (test code = 53021-5) [facility] [id number] 13:25:00* Test Item Value Reference Range Interpretation Comme nts POCT PREG (test code = 1605) Negative On board controls acceptable with C Line (test code = 3574) Yes Lab Interpretation (test cod e = 49717-6) Normal [facility] [id number] 00:00:00* Test Item Value Reference Range Interpretation Comme nts A1C (test code = 4548-4) 9.9 CBC W/AUTO [id number] 00:00:00* Test Item Value Reference Range Interpretation Comme [facility] NUCLEATED RBCS (test code = 91362-3) 0.0 /100 WBC'S See_Comment [Automated messa ge] The system which generated this result transmitted reference range: 0.0 /100 WBC'S. The reference range was not used to interpret this result as normal/abnormal. ABSOLUTE EOSINOPHILS (test code = 59258-9) 0.06 K/UL See_Comment [Automated messa ge] The system which generated this result transmitted reference range: 0.00-0.50 K/UL. The reference range was not used to interpret this result as normal/abnormal. ABSOLUTE LYMPHOCYTES (test code = 19874-9) 1.82 K/UL See_Comment [Automated messa ge] The system which generated this result transmitted reference range: 1.00-4.00 K/UL. The reference range was not used to interpret this result as normal/abnormal. ABSOLUTE MONOCYTES (test code = 68665-6) 0.42 K/UL See_Comment [Automated messa ge] The system which generated this result transmitted reference range: 0.20-1.00 K/UL. The reference range was not used to interpret this result as normal/abnormal. ABSOLUTE NEUTROPHILS (test code = 12728-5) 4.88 K/UL See_Comment [Automated messa ge] The system which generated this result transmitted reference range: 1.50-7.50 K/UL. The reference range was not used to interpret this result as normal/abnormal. BASOPHILS (test code = 11535-8) 0.4 % EOSINOPHILS (test code = 17529-5) 0.8 % HEMATOCRIT (test code = 64922-7) 42.0 % See_Comment [Automated messa ge] The system which generated this result transmitted reference range: 34.0-45.0 %. The reference range was not used to interpret this result as normal/abnormal. HEMOGLOBIN (test code = 718-7) 14.5 G/DL See_Comment [Automated messa ge] The system which generated this result transmitted reference range: 11.5-15.5 G/DL. The reference range was not used to interpret this result as normal/abnormal. LYMPHOCYTES (test code = 35028-9) 25.2 % MCH (test code = 39285-0) 30.3 PG See_Comment [Automated messa ge] The system which generated this result transmitted reference range: 25.0-33.0 PG. The reference range was not used to interpret this result as normal/abnormal. MCHC (test code = 97220-2) 34.5 G/DL See_Comment [Automated messa ge] The system which generated this result transmitted reference range: 31.0-36.0 G/DL. The reference range was not used to interpret this result as normal/abnormal. MCV (test code = 44078-2) 87.7 fL See_Comment [Automated messa ge] The system which generated this result transmitted reference range: 80.0-99.0 fL. The reference range was not used to interpret this result as normal/abnormal. MONOCYTES (test code = 11536-6) 5.8 % NEUTROPHILS (test code = 05721-1) 67.5 % PLATELET COUNT (test code = 45184-2) 245 K/UL See_Comment [Automated messa ge] The system which generated this result transmitted reference range: 130-400 K/UL. The reference range was not used to interpret this result as normal/abnormal. RBC (test code = 15943-5) 4.79 M/UL See_Comment [Automated messa ge] The system which generated this result transmitted reference range: 3.80-5.40 M/UL. The reference range was not used to interpret this result as normal/abnormal. RDW (test code = 25854-9) 13.0 % See_Comment [Automated messa ge] The system which generated this result transmitted reference range: 11.5-15.0 %. The reference range was not used to interpret this result as normal/abnormal. WBC (test code = 46204-5) 7.2 K/UL See_Comment [Automated messa ge] The system which generated this result transmitted reference range: 3.5-11.0 K/UL. The reference range was not used to interpret this result as normal/abnormal. CBC W/AUTO [id number] 00:00:00* Test Item Value Reference Range Interpretation Comme nts NUCLEATED RBCS (test code = 17269-4) 0.0 /100 WBC'S See_Comment [Automated messa ge] The system which generated this result transmitted reference range: 0.0 /100 WBC'S. The reference range was not used to interpret this result as normal/abnormal. ABSOLUTE EOSINOPHILS (test code = 95529-0) 0.13 K/UL See_Comment [Automated messa ge] The system which generated this result transmitted reference range: 0.00-0.50 K/UL. The reference range was not used to interpret this result as normal/abnormal. ABSOLUTE LYMPHOCYTES (test code = 45130-0) 2.45 K/UL See_Comment [Automated messa ge] The system which generated this result transmitted reference range: 1.00-4.00 K/UL. The reference range was not used to interpret this result as normal/abnormal. ABSOLUTE MONOCYTES (test code = 53063-6) 0.53 K/UL See_Comment [Automated messa ge] The system which generated this result transmitted reference range: 0.20-1.00 K/UL. The reference range was not used to interpret this result as normal/abnormal. ABSOLUTE NEUTROPHILS (test code = 48139-5) 5.01 K/UL See_Comment [Automated messa ge] The system which generated this result transmitted reference range: 1.50-7.50 K/UL. The reference range was not used to interpret this result as normal/abnormal. BASOPHILS (test code = 34191-7) 0.6 % EOSINOPHILS (test code = 67818-3) 1.6 % HEMATOCRIT (test code = 65563-2) 44.6 % See_Comment [Automated messa ge] The system which generated this result transmitted reference range: 34.0-45.0 %. The reference range was not used to interpret this result as normal/abnormal. HEMOGLOBIN (test code = 718-7) 15.9 G/DL See_Comment H [Automated messa ge] The system which generated this result transmitted reference range: 11.5-15.5 G/DL. The reference range was not used to interpret this result as normal/abnormal. LYMPHOCYTES (test code = 66729-7) 29.9 % MCH (test code = 68611-3) 30.6 PG See_Comment [Automated messa ge] The system which generated this result transmitted reference range: 25.0-33.0 PG. The reference range was not used to interpret this result as normal/abnormal. MCHC (test code = 41937-8) 35.7 G/DL See_Comment [Automated messa ge] The system which generated this result transmitted reference range: 31.0-36.0 G/DL. The reference range was not used to interpret this result as normal/abnormal. MCV (test code = 52881-3) 85.8 fL See_Comment [Automated messa ge] The system which generated this result transmitted reference range: 80.0-99.0 fL. The reference range was not used to interpret this result as normal/abnormal. MONOCYTES (test code = 26960-9) 6.5 % NEUTROPHILS (test code = 23295-1) 61.2 % PLATELET COUNT (test code = 14115-1) 265 K/UL See_Comment [Automated messa ge] The system which generated this result transmitted reference range: 130-400 K/UL. The reference range was not used to interpret this result as normal/abnormal. RBC (test code = 85887-1) 5.20 M/UL See_Comment [Automated messa ge] The system which generated this result transmitted reference range: 3.80-5.40 M/UL. The reference range was not used to interpret this result as normal/abnormal. RDW (test code = 12830-4) 13.1 % See_Comment [Automated messa ge] The system which generated this result transmitted reference range: 11.5-15.0 %. The reference range was not used to interpret this result as normal/abnormal. WBC (test code = 37170-9) 8.2 K/UL See_Comment [Automated [employer]] The system which generated this result transmitted reference range: 3.5-11.0 K/UL. The reference range was not used to interpret this result as normal/abnormal. Creatine Wzgtvx8522-71-32 12:11:29* Test Item Value Reference Range Interpretation Comme nts CK (test code = 8618823114) 46 U/L 33-194 Lab Interpretation (test cod e = 13178-8) Normal [facility], Hzuqh9499-91-15 12:05:04* Test Item Value Reference Range Interpretation Comme nts PREG SERUM (test code = 9965948964) Negative JAYDEN (test code = JAYDEN) Less than 10 IU/L. ?If low titer or ectopic is suspected, resubmit specimen in 48-72 hours. [facility]en[facility]yroid Stimulating Qsoufwp7436-88-23 12:00:46 * Test Item Value Reference Range Interpretation Comme nts TSH (test code = 4056080275) See_Comment [Automated [employer]] The system which generated this result transmitted reference range: 0.45 - 4.70 mIU/L. The reference range was not used to interpret this result as normal/abnormal. Lab Interpretation (test code = 39092-1) Normal [facility]en[facility]icylate2022-12-29 11:35:16 SALICYLATE<10mg/L1 5:35 AM [facility]: ? Analgesic and Antipyretic Use ? 20- 100 mg/L ? ? Anti-Inflammatory Use ? 100-250 mg/L Toxic Range: ? Greater than 300 mg/LUnCHRISTUS Spohn [facility] – SouthEthanol (ETOH) [id number] 11:35:11ALCOHOL<10mg/dL06/16/2022 5:35 AM [facility]<10 Imrukyog82-742 Toxic>100 Depression of SCREWHEAD POLISHER>400 Fatalities ReportedValley [facility] Center – HarlingenAcetaminophen 2022-06-16 11:35:01* Test Item Value Reference Range Interpretation Comme nts ACETAMINOP (test code = 1634535742) 10.0-30.0 L JAYDEN (test code = JAYDEN) Toxic: Greater fela n 200 ug/mL @ 4 hour post ingestion or greater than 50 ug/mL @ 12 hour post ingestion Lab Interpretation (test code = 93161-0) Abnormal [facility]en[facility] Panel (53334) 2022-06-16 11:30:24* Test Item Value Reference Range Interpretation Comme nts NA (test code = 6468669550) 135 mmol/L 135-145 K (test code = 3949954080) 3.9 mmol/L 3.5-5.0 CL (test code = 6259128911) 103 mmol/L 98-108 CO2 TOTAL (test code = 8882117376) 21 mmol/L 23-31 L AGAP (test code = 4320898671) 2-16 BUN (test code = 8488143135) 5 mg/dL 7-23 L GLUCOSE (test code = 2036948690) 162 mg/dL 70-110 H CREATININE (test code = 0670774952) 0.36 mg/dL 0.50-1.04 L TOTAL BILI (test code = 1649000558) 0.7 mg/dL 0.1-1.1 CALCIUM (test code = 6662037508) 8.9 mg/dL 8.6-10.6 T PROTEIN (test code = 1317831001) 7.1 g/dL 6.3-8.2 ALBUMIN (test code = 2407382376) 4.4 g/dL 3.5-5.0 ALK PHOS (test code = 3543381334) 69 U/L 34-122 ALTv (test code = 1742-6) 75 U/L 5-35 H AST(SGOT) (test code = 2466379538) 106 U/L 13-40 H eGFR (test code = 7068253520) mL/min/1.73m2 JAYDEN (test code = JAYDEN) Association of [...] or abnormalities in imaging tests). Lab Interpretation (test code = 30256-1) Abnormal [facility] with Svetkpjzsjhk0828-00-84 11:16:03* Test Item Value Reference Range Interpretation Comme nts WBC (test code = 6690-2) See_Comment [Fidelis] The system which generated this result transmitted reference range: 4.30 - 11.10 10*3/?L. The reference range was not used to interpret this result as normal/abnormal. RBC (test code = 789-8) See_Comment [Fidelis] The system which generated this result transmitted reference range: 3.93 - 5.25 10*6/?L. The reference range was not used to interpret this result as normal/abnormal. HGB (test code = 718-7) 14.9 g/dL 11.6-15.0 HCT (test code = 4544-3) 41.8 % 35.7-45.2 MCV (test code = 787-2) 83.4 fL 80.6-95.5 MCH (test code = 785-6) 29.7 pg 25.9-32.8 MCHC (test code = 786-4) 35.6 g/dL 31.6-35.1 H RDW-SD (test code = 43127-5) 38.3 fL 39.0-49.9 L RDW-CV (test code = 788-0) 12.7 % 12.0-15.5 PLT (test code = 777-3) See_Comment [Automated messa ge] The system which generated this result transmitted reference range: 166 - 358 10*3/?L. The reference range was not used to interpret this result as normal/abnormal. MPV (test code = 63900-8) 10.9 fL 9.5-12.9 NRBC/100 WBC (test code = 5519557816) See_Comment [Automated [employer] ssage] The system which generated this result transmitted reference range: 0.0 - 10.0 /100 WBCs. The reference range was not used to interpret this result as normal/abnormal. NRBC x10^3 (test code = 2347140818) See_Comment [Automated [employer] Heroa ge] The system which generated this result transmitted reference range: 10*3/?L. The reference range was not used to interpret this result as normal/abnormal. GRAN MAT (NEUT) % (test code = 770-8) 64.5 % IMM GRAN % (test code = 5267480306) 0.30 % LYMPH % (test code = 736-9) 26.9 % MONO % (test code = 5905-5) 7.6 % EOS % (test code = 713-8) 0.4 % BASO % (test code = 706-2) 0.3 % GRAN MAT x10^3(ANC) (test code = 3005718484) 4.75 10*3/uL 1.88-7.09 IMM GRAN x10^3 (test code = 7150345884) 0.00-0.06 LYMPH x10^3 (test code = 731-0) 1.98 10*3/uL 1.32-3.29 MONO x10^3 (test code = 742-7) 0.56 10*3/uL 0.33-0.92 EOS x10^3 (test code = 711-2) 0.03 10*3/uL 0.03-0.39 BASO x10^3 (test code = 704-7) 0.01-0.07 Lab Interpretation (test code = 79088-9) Abnormal [facility] GLUCOSE (AUTOMATED)2022-06-15 15:23:50* Test Item Value Reference Range Interpretation Comme nts POCT GLU (test code = 7463558098) 156 mg/dL 70-110 H Lab Interpretation (test cod e = 12907-9) Abnormal [facility] GLUCOSE (AUTOMATED)2022-06-14 17:52:47* Test Item Value Reference Range Interpretation Comme nts POCT GLU (test code = 6781153626) 162 mg/dL 70-110 H Lab Interpretation (test cod e = 82231-1) Abnormal [facility] GLUCOSE(AGE >30DAYS)2022-06-14 17:51:00* Test Item Value Reference Range Interpretation Comme nts POCT Glu (age>30days) (test code = 3342) 162 mg/dL 70-110 A Lab Interpretation (test cod e = 91518-0) Abnormal [facility]. METABOLIC PANEL (78871)2022-06-13 01:40:55* Test Item Value Reference Range Interpretation Comme nts NA (test code = 3938537532) 138 mmol/L 135-145 K (test code = 2143014565) 4.1 mmol/L 3.5-5.0 CL (test code = 0812160423) 103 mmol/L 98-108 CO2 TOTAL (test code = 3952189879) 26 mmol/L 23-31 AGAP (test code = 5026776615) 2-16 BUN (test code = 2677816455) 10 mg/dL 7-23 GLUCOSE (test code = 0502199341) 180 mg/dL 70-110 H CREATININE (test code = 6159640471) 0.41 mg/dL 0.50-1.04 L TOTAL BILI (test code = 3212087838) 0.5 mg/dL 0.1-1.1 CALCIUM (test code = 7114391459) 8.8 mg/dL 8.6-10.6 T PROTEIN (test code = 9263709276) 6.8 g/dL 6.3-8.2 ALBUMIN (test code = 0207903865) 4.2 g/dL 3.5-5.0 ALK PHOS (test code = 7737014337) 59 U/L 34-122 ALTv (test code = 1742-6) 49 U/L 5-35 H AST(SGOT) (test code = 6453701611) 56 U/L 13-40 H eGFR (test code = 6365046651) mL/min/1.73m2 JAYDEN (test code = JAYDEN) Association of [...] or abnormalities in imaging tests). Lab Interpretation (test code = 66080-6) Abnormal [facility] WITH [id number] 01:27:37* Test Item Value Reference Range Interpretation Comme nts WBC (test code = 6690-2) See_Comment [Automated [employer]] The system which generated this result transmitted reference range: 4.30 - 11.10 10*3/?L. The reference range was not used to interpret this result as normal/abnormal. RBC (test code = 789-8) See_Comment [Automated messa ge] The system which generated this result transmitted reference range: 3.93 - 5.25 10*6/?L. The reference range was not used to interpret this result as normal/abnormal. HGB (test code = 718-7) 14.4 g/dL 11.6-15.0 HCT (test code = 4544-3) 41.0 % 35.7-45.2 MCV (test code = 787-2) 83.5 fL 80.6-95.5 MCH (test code = 785-6) 29.3 pg 25.9-32.8 MCHC (test code = 786-4) 35.1 g/dL 31.6-35.1 RDW-SD (test code = 80220-1) 38.2 fL 39.0-49.9 L RDW-CV (test code = 788-0) 12.7 % 12.0-15.5 PLT (test code = 777-3) See_Comment [Automated [employer]] The system which generated this result transmitted reference range: 166 - 358 10*3/?L. The reference range was not used to interpret this result as normal/abnormal. MPV (test code = 35350-2) 10.9 fL 9.5-12.9 NRBC/100 WBC (test code = 1866312472) See_Comment [Automated [employer] ssage] The system which generated this result transmitted reference range: 0.0 - 10.0 /100 WBCs. The reference range was not used to interpret this result as normal/abnormal. NRBC x10^3 (test code = 2349775820) See_Comment [Automated [employer]] The system which generated this result transmitted reference range: 10*3/?L. The reference range was not used to interpret this result as normal/abnormal. GRAN MAT (NEUT) % (test code = 770-8) 56.6 % IMM GRAN % (test code = 3277456996) 0.50 % LYMPH % (test code = 736-9) 33.2 % MONO % (test code = 5905-5) 8.0 % EOS % (test code = 713-8) 1.0 % BASO % (test code = 706-2) 0.7 % GRAN MAT x10^3(ANC) (test code = 6137385887) 3.49 10*3/uL 1.88-7.09 IMM GRAN x10^3 (test code = 0312489491) 0.03 10*3/uL 0.00-0.06 LYMPH x10^3 (test code = 731-0) 2.04 10*3/uL 1.32-3.29 MONO x10^3 (test code = 742-7) 0.49 10*3/uL 0.33-0.92 EOS x10^3 (test code = 711-2) 0.06 10*3/uL 0.03-0.39 BASO x10^3 (test code = 704-7) 0.04 10*3/uL 0.01-0.07 Lab Interpretation (test code = 74476-7) Abnormal [facility] [id number] 01:24:00* Test Item Value Reference Range Interpretation Comme nts POCT PREG (test code = 1605) negative On board controls acceptable with C Line (test code = 3574) positive POCT PREG LOT # (test code = 3575) [id number] POCT PREG TEST DATE ( test code = 3576) 09/17/2023 Lab Interpretation (test cod e = 19313-2) Normal [facility] GLUCOSE (AUTOMATED)2022-06-12 23:34:10* Test Item Value Reference Range Interpretation Comme [facility] POCT GLU (test code = 7855326357) 296 mg/dL 70-110 H Lab Interpretation (test cod e = 35870-9) [facility]A1C)2022-01-01 20:12:57* Test Item Value Reference Range Interpretation Comme nts HGB A1C (test code = 4548-4) 8.2 % 4-5.7 H JAYDEN (test code = JAYDEN) Reference RangesNormal: <5.7%Prediabetes: 5.7 - 6.4%Diabetes: > 6.5% Lab Interpretation (test code = 97393-5) [facility]normal [facility]en[facility] STIMULATING [id number] 19:46:18 * Test Item Value Reference Range Interpretation Comme nts TSH (test code = 4312523954) See_Comment [Automated messa ge] The system which generated this result transmitted reference range: 0.45 - 4.70 mIU/L. The reference range was not used to interpret this result as normal/abnormal. Lab Interpretation (test code = 64571-9) Normal [facility]enFREE [id number] 19:33:18* Test Item Value Reference Range Interpretation Comme nts FREE T4 (test code = 7123693823) See_Comment [Automated messa ge] The system which generated this result transmitted reference range: 0.78 - 2.20 ng/dL:. The reference range was not used to interpret this result as normal/abnormal. Lab Interpretation (test code = 69310-3) Normal [facility]enTROPONIN [id number] 19:28:16* Test Item Value Reference Range Interpretation Comments TROPONIN I (test code = 1782689400) 0.003 ng/mL See_Comment [Automated message] The system which generated this result transmitted reference range: <=0.034. The reference range was not used to interpret this result as normal/abnormal. JAYDEN (test code = JAYDEN) Reference (Normal) Range (defined by the 99th percentile reference [...] to patient's use of biotin. Lab Interpretation (test code = 26236-6) Normal [facility]enN-TERMINAL [id number] 19:24:55* Test Item Value Reference Range Interpretation Comme nts NT-proBNP (test code = 4355250272) 35 pg/mL See_Comment [Automated message] The system which generated this result transmitted reference range: <=125. The reference range was not used to interpret this result as normal/abnormal. JAYDEN (test code = JAYDEN) Biotin has been reported to cause a negative bias, interpret results relative to patient's use of biotin. Lab Interpretation (test code = 08030-1) Normal [facility]enETHANOL2022-07-16 19:24:45 ALCOHOL<10mg/dL01/01/2022 2:24 PM [facility]<10 [id number] Toxic>100 Depression of SCREWHEAD POLISHER>400 Fatalities ReportedUnCHRISTUS [facility] SouthACTIVATED PARTIAL THRMPLAS [id number] 19:23:59* Test Item Value Reference Range Interpretation Comme nts APTT Patient (test code = 3173-2) See_Comment [Automated message] The system which generated this result transmitted reference range: 23 - 38 Seconds. The reference range was not used to interpret this result as normal/abnormal. JAYDEN (test code = JAYDEN) The [facility] patient population mean normal value for aPTT is 30 seconds. Lab Interpretation (test code = 71874-3) Normal [facility] HarlingenPROTHROMBIN TIME / [id number] 19:21:59* Test Item Value Reference Range Interpretation Comme [facility] PROTIME PATIENT (test code = 5964-2) See_Comment [Automated messa ge] The system which generated this result transmitted reference range: 12.0 - 14.7 Seconds. The reference range was not used to interpret this result as normal/abnormal. INR (test code = 6301-6) Normal INR <1.1; Warfarin Therapeutic range 2.0 to 3.0 or 2.5 to 3.5, depending upon the indications. Lab Interpretation (test code = 65214-4) Normal [facility]enAMMONIA, [id number] 19:18:47* Test Item Value Reference Range Interpretation Comme nts AMMONIA (test code = 2583831171) 9-33 L Lab Interpretation (test cod e = 16124-1) [facility]normal [facility]enMAGNESIUM2022-07-16 19:10:59* Test Item Value Reference Range Interpretation Comme nts MAGNESIUM (test code = 2996642793) 1.7 mg/dL 1.7-2.4 Lab Interpretation (test cod e = 44425-0) [facility] METABOLIC PANEL (33849)2022-01-01 19:10:38* Test Item Value Reference Range Interpretation Comme nts NA (test code = 2713995836) 136 mmol/L 135-145 K (test code = 9679780613) 4.6 mmol/L 3.5-5 CL (test code = 8122646966) 103 mmol/L 98-108 CO2 TOTAL (test code = 6311321781) 23 mmol/L 23-31 AGAP (test code = 9122556170) 2-16 BUN (test code = 9168048572) 9 mg/dL 7-23 GLUCOSE (test code = 9723116956) 282 mg/dL 70-110 H CREATININE (test code = 5456297283) 0.34 mg/dL 0.5-1.04 L TOTAL BILI (test code = 3590110808) 0.5 mg/dL 0.1-1.1 CALCIUM (test code = 6766748750) 9.1 mg/dL 8.6-10.6 T PROTEIN (test code = 5206776055) 7.1 g/dL 6.3-8.2 ALBUMIN (test code = 6480133537) 4.4 g/dL 3.5-5 ALK PHOS (test code = 3525349976) 50 U/L 34-122 ALTv (test code = 1742-6) 42 U/L 5-35 H AST(SGOT) (test code = 7661923856) 44 U/L 13-40 H eGFR (test code = 1985450308) mL/min/1.73m2 JAYDEN (test code = JAYDEN) Association of [...] or abnormalities in imaging tests). Lab Interpretation (test code = 02891-4) Abnormal [facility] WITH [id number] 19:03:19* Test Item Value Reference Range Interpretation Comme nts WBC (test code = 6690-2) See_Comment [Automated [employer]] The system which generated this result transmitted reference range: 4.30 - 11.10 10*3/?L. The reference range was not used to interpret this result as normal/abnormal. RBC (test code = 789-8) See_Comment [Fidelis] The system which generated this result transmitted reference range: 3.93 - 5.25 10*6/?L. The reference range was not used to interpret this result as normal/abnormal. HGB (test code = 718-7) 14.7 g/dL 11.6-15 HCT (test code = 4544-3) 41.5 % 35.7-45.2 MCV (test code = 787-2) 83.7 fL 80.6-95.5 MCH (test code = 785-6) 29.6 pg 25.9-32.8 MCHC (test code = 786-4) 35.4 g/dL 31.6-35.1 H RDW-SD (test code = 74459-3) 37.7 fL 39-49.9 L RDW-CV (test code = 788-0) 12.5 % 12-15.5 PLT (test code = 777-3) See_Comment [Automated [employer]] The system which generated this result transmitted reference range: 166 - 358 10*3/?L. The reference range was not used to interpret this result as normal/abnormal. MPV (test code = 63600-7) 11.1 fL 9.5-12.9 NRBC/100 WBC (test code = 1341339144) See_Comment [Automated me ssage] The system which generated this result transmitted reference range: 0.0 - 10.0 /100 WBCs. The reference range was not used to interpret this result as normal/abnormal. NRBC x10^3 (test code = 2059165009) See_Comment [Automated messa ge] The system which generated this result transmitted reference range: 10*3/?L. The reference range was not used to interpret this result as normal/abnormal. GRAN MAT (NEUT) % (test code = 770-8) 68.2 % IMM GRAN % (test code = 2070988840) 0.50 % LYMPH % (test code = 736-9) 23.6 % MONO % (test code = 5905-5) 6.4 % EOS % (test code = 713-8) 0.5 % BASO % (test code = 706-2) 0.8 % GRAN MAT x10^3(ANC) (test code = 3603631381) 4.50 10*3/uL 1.88-7.09 IMM GRAN x10^3 (test code = 7629401059) 0.03 10*3/uL 0-0.06 LYMPH x10^3 (test code = 731-0) 1.55 10*3/uL 1.32-3.29 MONO x10^3 (test code = 742-7) 0.42 10*3/uL 0.33-0.92 EOS x10^3 (test code = 711-2) 0.03 10*3/uL 0.03-0.39 BASO x10^3 (test code = 704-7) 0.05 10*3/uL 0.01-0.07 Lab Interpretation (test code = 67756-3) Abnormal [facility] [id number] 18:37:00* Test Item Value Reference Range Interpretation Comme nts POCT PREG (test code = 1605) negative On board controls acceptable with C Line (test code = 3574) present POCT PREG LOT # (test code = 3575) [id number] POCT PREG TEST DATE ( test code = 3576) 04/18/2023 Lab Interpretation (test cod e = 27024-4) Normal [facility] MOLECULAR [id number] 23:13:16* Test Item Value Reference Range Interpretation Comme nts POCT Molecular FluA (test co de = 75537-4) Negative Negative POCT Molecular FluB (test co de = 06987-0) Negative Negative Lab Interpretation (test cod e = 32814-9) Normal [facility] MOLECULAR [id number] 15:09:14* Test Item Value Reference Range Interpretation Comme nts POCT Molecular Strep (test c ode = 90686-2) Positive Negative A Lab Interpretation (test cod e = 32629-4) Abnormal [facility] Notes Date/Time Note Provider Source 2024-07-25 16:01:24 Pt given printed and verbal discharge instructions regarding cat bite and acute wrist pain, encouraged hydration. Prescriptions provided. Discussed antibiotic therapy and to take until all completed unless adverse reaction occurs - if occurs, discontinue medication and follow up with pcp/seek medical attention. Pt verbalized understanding of instructions, pt awake alert oriented, resp reg unlabored, skin w/d, color appropriate for race, moves all ext well, pt encouraged to follow up with pcp. Advised to seek medical attention for new/prolonged/worsening of symptoms. Symptoms addressed. No adverse reaction to meds given in ER noted upon discharge. Pt leaving amb with steady gait, in no apparent distress. ARA Felipe RN [facility] 2024-07-25 14:13:00 Patient came in with complaints of cat bite to her right hand yesterday. States it's her brother's cat. Tetanus - up to date ARA Smith RN [facility] 2024-03-14 11:09:30 Pt given printed and verbal discharge instructions regarding urinary tract infection without hematuria, encouraged hydration. 1 Prescriptions sent with pt.Discussed antibiotic therapy and to take until all completed unless adverse reaction occurs - if occurs, discontinue medication and follow up with pcp/seek medical attention. Pt verbalized understanding of instructions, pt awake alert oriented, resp reg unlabored, skin w/d, color appropriate for race, moves all ext well,pt encouraged to follow up with pcp.Advised to seek medical attention for new/prolonged/worsening of symptoms. No adverse reaction to meds given in ER noted upon discharge. Awake, alert oriented, resp reg unlabored, skin w/d, pt leaving amb with steady gait, in no apparent distress. Tiffanie Perales RN [facility] 2024-03-14 10:08:09 Patient went to x ray. MANUELT Efe Zaldivar RN [facility] 2024-03-14 07:56:26 Patient arrived ambulatory c/o right upper quadrant pain that started yesterday while sitting in bed. Denies any injury, denies any nausea and vomiting, and denies any diarrhea or constipation. Last medicated with ibuprofen yesterday. Hayley Taylor RN [facility] 2024-03-14 07:52:00 [facility] Emergency Department Note Patient Name: Pam John Date of : 2000 24 year old female Treatment [facility] Primary Care Physician: PATIENT DOES NOT HAVE A PCP Patient Escorted by: Self [9] Mode of Arrival: Personal means [1] EMS Treatment Prior to ED Arrival: Travel and Exposure Screening: Symptoms Does patient have any of these symptoms?: (not recorded) Exposure Screening Has patient had contact with someone with a communicable disease in the last month?: (not recorded) Diseases exposed to:: (not recorded) Is Patient ?: (not recorded) Exposure Date: (not recorded) Chief Complaint: Chief Complaint Patient presents with Abdominal Pain History of Present Illness: Very pleasant lady presents for RUQ pain starting yesterday. Denies n/v, fever, diarrhea. History provided by: Patient Past Medical History/Immunizations: Past Medical History: Diagnosis Date Aortic stenosis Chronic ear infection Allergies: Allergies Allergen Reactions Reglan [Metoclopramide] Other - See comments Violent towards herself Past Social History: Tobacco Use Never smoked or used smokeless tobacco. Alcohol Use Never. Drug Use Never. Sexual Activity Not currently sexually active; Control/Protection: Pill. Past Surgical History: No past surgical history on file. Review of Systems: Review of Systems Constitutional: Negative for activity change, appetite change, chills, diaphoresis, fatigue and fever. HENT: Negative for congestion, ear discharge, ear pain, facial swelling, hearing loss, sore throat, tinnitus, trouble swallowing and voice change. Eyes: Negative for photophobia, pain, discharge, redness, itching and visual disturbance. Respiratory: Negative for apnea, cough, choking, chest tightness, shortness of breath and stridor. Breasts: Negative for discharge. Cardiovascular: Negative for chest pain, palpitations and leg swelling. Gastrointestinal: Positive for abdominal pain. Negative for abdominal distention, blood in stool, diarrhea, nausea and vomiting. Genitourinary: Negative for dysuria, frequency, hematuria, flank pain, enuresis and difficulty urinating. Musculoskeletal: Negative for arthralgias, back pain, gait problem, joint swelling, myalgias, neck pain and neck stiffness. Skin: Negative for color change, pallor, rash and wound. Neurological: Negative for dizziness, syncope, facial asymmetry, speech difficulty, weakness, light-headedness and headaches. Psychiatric/Behavioral: Negative for agitation, confusion, hallucinations and self-injury. The patient is not nervous/anxious. Hematological: Negative for adenopathy, cold intolerance and heat intolerance. Does not bruise/bleed easily. Endocrine: Negative for cold intolerance, heat intolerance, polydipsia and polyphagia. Physical Exam: ED Triage Vitals [03/14/24 0757] Weight 116.1 kg (256 lb) Actual or estimated Estimated by patient/family report Height 1.499 m (4' 11") BP 130/76 Pulse 106 Resp 16 Temp 37 ?C (98.6 ?F) Temp source Oral SpO2 98 % Measured on Room air Physical Exam Constitutional: General: She is not in acute distress. Appearance: She is well-developed. She is not ill-appearing, toxic-appearing or diaphoretic. HENT: Head: Normocephalic and atraumatic. Right Ear: External ear normal. Left Ear: External ear normal. Eyes: General: No scleral icterus. Right eye: No discharge. Left eye: No discharge. Neck: Trachea: No tracheal deviation. Cardiovascular: Rate and Rhythm: Normal rate and regular rhythm. Heart sounds: Normal heart sounds. Pulmonary: Effort: Pulmonary effort is normal. No respiratory distress. Breath sounds: Normal breath sounds. No stridor. No wheezing or rales. Abdominal: General: There is no distension. Palpations: Abdomen is soft. Tenderness: There is abdominal tenderness (minimal TTP RUQ). There is no guarding. Musculoskeletal: General: No tenderness or deformity. Normal range of motion. Cervical back: Normal range of motion and neck supple. Skin: General: Skin is warm. Coloration: Skin is not pale. Findings: No erythema or rash. Neurological: Mental Status: She is alert and oriented to person, place, and time. Motor: No abnormal muscle tone. Psychiatric: Behavior: Behavior normal. Thought Content: Thought content normal. Judgment: Judgment normal. Radiology: XR ABDOMEN 2 VW Final Result EXAM: XR ABDOMEN 2 VW 03/14/2024 10:10 AM COMPARISON: None available. HISTORY: abdominal pain ?constipation ?obstruction FINDINGS: The bowel gas pattern is normal. A small to moderate volume of stool is present within ascending and descending colon. No calcified renal stone is seen. No acute osseous abnormality. IMPRESSION No bowel obstruction. Small to moderate volume of stool. US GALL BLADDER Final Result HISTORY: RUQ Abdominal pain. TECHNIQUE: Gallbladder is evaluated in multiple planes with the patient in different positions. Color imaging is utilized. FINDINGS: Gallbladder is of normal size and shape with no edema or thickening of the reeves. No gallstones. No biliary sludge or crystals seen. No free fluid detected in pericholecystic space. Common hepatic duct is 2.6 mm. Hepatic and portal venous system appeared patent. CONCLUSION: Normal study. Lab Results: Lab Results COMP. METABOLIC PANEL (82238) - Abnormal Result Value Ref Range NA 136 135 - 145 mmol/L K 4.0 3.5 - 5.0 mmol/L CL 104 98 - 108 mmol/L CO2 TOTAL 22 (*) 23 - 31 mmol/L AGAP 10 2 - 16 BUN 10 7 - 23 mg/dL GLUCOSE 223 (*) 70 - 110 mg/dL CREATININE 0.34 (*) 0.50 - 1.04 mg/dL TOTAL BILI 1.0 0.1 - 1.1 mg/dL CALCIUM 9.0 8.6 - 10.6 mg/dL T PROTEIN 7.2 6.3 - 8.2 g/dL ALBUMIN 4.3 3.5 - 5.0 g/dL ALK PHOS 94 34 - 122 U/L ALTv 92 (*) 5 - 35 U/L AST(SGOT) 70 (*) 13 - 40 U/L eGFR 145.8 mL/min/1.73m2 URINALYSIS - Abnormal APPEARANCE Slightly Cloudy (*) Clear COLOR Yellow Yellow PH 5.0 4.8 - 8.0 SP GRAVITY 1.028 1.003 - 1.030 GLU U QUAL 50 mg/dL (*) Normal BLOOD Negative Negative KETONES Negative Negative PROTEIN Negative Negative UROBILIN Normal Normal BILIRUBIN Negative Negative NITRITE Negative Negative LEUK TALON 250/uL (*) Negative RBC/HPF 4 (*) 0 - 3 HPF WBC/HPF 13 (*) 0 - 5 HPF BACTERIA Few (*) Negative MUCOUS Slight (*) Negative LPF SQ EPITH 2 HPF CBC WITH DIFF - Abnormal WBC 8.27 4.30 - 11.10 10*3/?L RBC 5.13 3.93 - 5.25 10*6/?L HGB 15.7 (*) 11.6 - 15.0 g/dL HCT 44.6 35.7 - 45.2 % MCV 86.9 80.6 - 95.5 fL MCH 30.6 25.9 - 32.8 pg MCHC 35.2 (*) 31.6 - 35.1 g/dL RDW-SD 40.3 39.0 - 49.9 fL RDW-CV 13.0 12.0 - 15.5 % PLT 220 166 - 358 10*3/?L MPV 11.2 9.5 - 12.9 fL NRBC/100 WBC 0.0 0.0 - 10.0 /100 WBCs NRBC x10 3 <0.01 10*3/?L GRAN MAT (NEUT) % 70.4 % IMM GRAN % 0.20 % LYMPH % 21.6 % MONO % 6.7 % EOS % 0.6 % BASO % 0.5 % GRAN MAT x10 3 (ANC) 5.82 1.88 - 7.09 10*3/uL IMM GRAN x10 3 <0.03 0.00 - 0.06 10*3/uL LYMPH x10 3 1.79 1.32 - 3.29 10*3/uL MONO x10 3 0.55 0.33 - 0.92 10*3/uL EOS x10 3 0.05 0.03 - 0.39 10*3/uL BASO x10 3 0.04 0.01 - 0.07 10*3/uL LIPASE - Normal LIPASE 54 0 - 220 U/L POCT TEST - Normal POCT PREG Negative On board controls acceptable with C Line Yes EKG: If EKG completed, see Procedure Note. Orders and Treatments: Orders Placed This Encounter Procedures US GALL BLADDER XR ABDOMEN 2 VW LIPASE CMP POCT TEST URINALYSIS CBC with Diff Orders Placed This Encounter Medications NaCl 0.9% (NS) bolus infusion 1,000 mL ketorolac (TORADOL) injection 30 mg diphenhydrAMINE:lidocaine 2% viscous:maalox 1:1:1 (FIRST-MOUTHWASH BLM) oral suspension 15 mL cefTRIAXone (ROCEPHIN) 1,000 mg in NaCl 0.9% (NS) 100 mL MINI-BAG pantoprazole (PROTONIX) injection 80 mg cefdinir 300 mg capsule First Provider Eval: ED Events Date/Time Event User Comments 03/14/24 0800 Medical Screening Begins DEVON YAP MD P -- 03/14/24 0800 First Provider Evaluation DEVON YAP MD -- ED COURSE Diagnosis/Impression as of 03/14/24 1047 RUQ pain Urinary tract infection without hematuria, site unspecified Procedures: Procedures MDM: Medical Decision Making DDx incl cholecystitis, hepatitis, PUD, gastritis, constipation, UTI, et al D/w pt results, rec plan of care and f/u, and red flags for return. Amount and/or Complexity of Data Reviewed Labs: ordered. Radiology: ordered. Risk Prescription drug management. Flowsheet Documentation: Disposition/Condition: ED Disposition ED Disposition Disch - Home Condition Stable Comment -- Discharge Medications: Patient's Medications START taking these medications CEFDINIR 300 MG CAPSULE Take 1 capsule by mouth every 12 (twelve) hours for 5 days. CONTINUE taking these medications which have NOT CHANGED FLUTICASONE PROPIONATE 50 MCG/ACTUATION NASAL SPRAY Use 2 Sprays in each nostril daily. METFORMIN 500 MG TABLET Take 1 tablet by mouth in the morning and 1 tablet in the evening. NORGESTIMATE-ETHINYL ESTRADIOL (SPRINTEC, 28, ORAL) Take by mouth. ONDANSETRON 4 MG DISINTEGRATING TABLET Take 1 tablet by mouth every 8 (eight) hours as needed for Nausea and Vomiting (N/V). START taking Modified Medications as Prescribed No medications on file STOP taking these medications No medications on file Follow-up: Electronically signed by: Devon Yap MD 03/14/24 1047 T [facility]
[2024-08-06] MEDS ORDERED: NA CHLORIDE 0.9% 1,000 ML ONE (09:12)
[2024-08-06 09:42] LABS: Absolute Lymphocytes (CBC) 1.8 K/uL (0.7-4.9); Absolute Monocytes 0.3 K/uL (0.1-1.3); Absolute Neutrophil 4.7 K/uL (1.8-8.0); Basophils % 0.5 % (0-1.3); Eosinophils % 0.7 % (0-4.4); Hematocrit 43.4 % (36.0-45.0); Hemoglobin 14.9 g/dL (12.0-15.0); Lymphocytes % 25.4 % (15.3-44.8); MCH 29.7 pg (27.0-35.0); MCHC 34.3 g/dL (32.0-36.0); MCV 86.6 fL (80-100); MPV 9.1 fL (7.6-11.3); Neutrophils % 68.4 % (41.7-73.7); Nucleated Red Blood Cells % 0.2 % (0-0); Platelets 261 thou/uL (152-406); RBC Red Blood Cell Count 5.01 M/uL (3.86-4.86)
[2024-08-06 09:46] LABS: Sqamous Epithelial <5 /HPF (None Seen); Urine Bacteria <20 /HPF (<20); Urine Bilirubin NEGATIVE (Negative); Urine Blood Negative (Negative); Urine Clarity Turbid (Clear); Urine Color Yellow (Yellow); Urine Culture Reflex Order NOT NEEDED; Urine Glucose 1+ (Negative); Urine Ketones 1+ (Negative); Urine Microscopic Reflex YN ORDER UMIC; Urine Mucus Slight /HPF (None Seen); Urine Nitrite NEGATIVE (Negative); Urine Protein NEGATIVE (Negative); Urine RBC <5 /HPF (None Seen); Urine Urobilinogen Normal (Normal); Urine WBC <5 /HPF (<5); Urine pH 5.5 (5.0-7.0)
[2024-08-06 09:58] LABS: Anion Gap 10.1 mEq/L (5.0-15.0); Potassium 4.1 mEq/L (3.5-5.1)
--- NOTE | 2024-08-06 10:26 | ER ---
Nurse's Notes [facility] Name: Pam John Age: 24 yrs Sex: Female : 2000 Arrival Date: 08/06/2024 Time: 08:43 Bed 18 Private MD: Diagnosis: Other specified diabetes mellitus with hyperglycemia Presentation: 08/06 08:55 Chief complaint: Patient states: blood sugar has been ranging from 200 -330, has been iw diagnosed with pre diabetes but has not had her metformin in a few months. Coronavirus screen: At this time, the client does not indicate any symptoms associated with coronavirus-19. Initial Sepsis Screen: Does the patient meet any 2 criteria? No. Patient's initial sepsis screen is negative. Does the patient have a suspected source of infection? No. Patient's initial sepsis screen is negative. Risk Assessment: Do you want to hurt yourself or someone else? Patient reports no desire to harm self or others. 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 - Infectious Disease History:: Denies. - Family history:: pertinent for diabetes. - Hospitalizations: : No recent hospitalization is reported. - Social history:: Smoking status: Patient denies any tobacco usage or history of. Screenin:54 [facility] ED Fall Risk Assessment (Adult) History of falling in the last 3 months, ld1 including since admission No falls in past 3 months (0 pts) Confusion or Disorientation No (0 pts) Intoxicated or Sedated No (0 pts) Impaired Gait No (0 pts) Mobility Assist Device Used No (0 pt) Altered Elimination No (0 pt) Score/Fall Risk Level 0 - 2 = Low Risk Oriented to surroundings, Hourly rounding (assess needs \T\ fall precautionary measures) done. Abuse screen: Denies threats or abuse. Denies injuries from another. Nutritional screening: No deficits noted. Tuberculosis screening: No symptoms or risk factors identified. Assessment: 09:54 General: Appears in no apparent distress. comfortable, Behavior is calm, cooperative, ld1 appropriate for age. Pain: Denies pain. Neuro: Level of Consciousness is awake, alert, obeys commands, Oriented to person, place, time, situation, Appropriate for age. Cardiovascular:. Cardiovascular: Capillary refill < 3 seconds Patient's skin is warm and dry. Respiratory: Airway is patent Respiratory effort is even, unlabored. GI: Abdomen is round obese. : No signs and/or symptoms were reported regarding the genitourinary system. EENT: No signs and/or symptoms were reported regarding the EENT system. Derm: No signs and/or symptoms reported regarding the dermatologic system. Musculoskeletal: No signs and/or symptoms reported regarding the musculoskeletal system. Vital Signs: 08:57 BP 142 / 89; Pulse 103; Resp 18; Temp 97.6; Pulse Ox 95% on R/A; Weight 113.85 kg; iw Height 4 ft. 11 in. ; Pain 0/10; 09:50 BP 114 / 74; Pulse 90; Resp 18; Temp 98.5(O); Pulse Ox 97% on R/A; ld1 08:57 Body Mass Index 50.70 (113.85 kg, 149.86 cm) iw 08:57 Pain Scale: Adult iw ED Course: 08:44 Patient arrived in ED. im 08:45 Jameson Carver MD is Attending Physician. rn 08:57 Triage completed. iw 08:58 Arm band placed on. iw 09:08 Moni Lares, RN is Primary Nurse. ld1 09:33 Urinalysis w/ reflexes Sent. ld1 09:33 Test, Urine Sent. ld1 09:33 Basic Metabolic Panel Sent. ld1 09:33 CBC with Diff Sent. ld1 09:36 Inserted saline lock: 20 gauge in left antecubital area, using aseptic technique. Blood ld1 collected. Flushed with 10 mL NS. 09:54 Patient has correct armband on for positive identification. Placed in gown. Bed in low ld1 position. Call light in reach. Side rails up X2. Pulse ox on. NIBP on. Door closed. Noise minimized. Warm blanket given. 09:54 No provider procedures requiring assistance completed. ld1 10:37 Provided Education on: medication, follow up. hb 10:37 IV discontinued, intact, bleeding controlled, No redness/swelling at site. Pressure hb dressing applied. Administered Medications: 09:35 Drug: NS 0.9% IV 1000 ml IV at 1000 ml once; to be given as a bolus over 60 minutes ld1 Route: IV; Rate: 1000 ml; Site: left antecubital; Medication: 09:54 VIS not applicable for this client. ld1 Outcome: 10:25 Discharge ordered by MD. rn 10:37 Discharged to home ambulatory, hb 10:37 Condition: stable 10:37 Discharge instructions given to patient, Instructed on discharge instructions, follow up and referral plans. medication usage, Demonstrated understanding of instructions, follow-up care, medications, Prescriptions given X 1, 10:38 Patient left the ED. hb Signatures: Jenniffer Salomon RN RN Jameson Carver MD MD rn Baxter, Heather, RN RN Moni Lares RN RN ld1 Brittney Guerra Corrections: (The following items were deleted from the chart) 09:00 08:57 BP 142 / 89; Pulse 103bpm; Resp 18bpm; Pulse Ox 95% RA; Temp 97.6F; [facility] 09:45 09:44 Family history: not pertinent, rn rn
--- NOTE | 2024-08-06 10:26 | EDPHYS ---
Physician Documentation [facility] Name: Pam John Age: 24 yrs Sex: Female : 2000 Arrival Date: 08/06/2024 Time: 08:43 Bed 18 Private MD: ED Physician Jameson Carver HPI: 08/06 09:44 This 24 yrs old Female presents to ER via Ambulatory with complaints of High Blood rn Sugar. 09:44 The patient or guardian reports hyperglycemia, that was potentially precipitated by Not rn taking medication. Onset: The symptoms/episode began/occurred at an unknown time. The patient has experienced similar episodes in the past. Patient reports high blood sugar, last took her metformin months ago, reports a few weeks of generalized weakness, malaise, increased urination and thirst. No fever or chills. Does not feel ill. No chest pain or shortness of breath. No abdominal pain or vomiting. States used to take metformin 1000 mg once a day but lost her insurance so stopped taking it or checking her sugar until recently.. 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 - Infectious Disease History:: Denies. - Family history:: pertinent for diabetes. - Hospitalizations: : No recent hospitalization is reported. - Social history:: Smoking status: Patient denies any tobacco usage or history of. ROS: 09:44 Constitutional: Negative for fever, chills, and weight loss, Neck: Negative for injury, rn pain, and swelling, Cardiovascular: Negative for chest pain, palpitations, and edema, Respiratory: Negative for shortness of breath, cough, wheezing, and pleuritic chest pain, Abdomen/GI: Negative for abdominal pain, nausea, vomiting, diarrhea, and constipation, Back: Negative for injury and pain, : Positive for increased urination MS/Extremity: Negative for injury and deformity, Skin: Negative for injury, rash, and discoloration, Neuro: Negative for headache, weakness, numbness, tingling, and seizure, Exam: 09:44 Constitutional: This is a well developed, well nourished patient who is awake, alert, rn and in no acute distress. ENT: Dry mucous membranes Cardiovascular: Tachycardic, regular Respiratory: No increased work of breathing, no retractions, speaking full sentences Abdomen/GI: Soft, nontender MS/ Extremity: Pulses equal, no cyanosis. Neuro: Awake and alert, GCS 15 Vital Signs: 08:57 BP 142 / 89; Pulse 103; Resp 18; Temp 97.6; Pulse Ox 95% on R/A; Weight 113.85 kg; iw Height 4 ft. 11 in. ; Pain 0/10; 09:50 BP 114 / 74; Pulse 90; Resp 18; Temp 98.5(O); Pulse Ox 97% on R/A; ld1 08:57 Body Mass Index 50.70 (113.85 kg, 149.86 cm) iw 08:57 Pain Scale: Adult iw MDM: 08:45 Medical Screening Exam initiated rn 10:08 Differential diagnosis: DKA. 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 Counseling: I had a detailed discussion with the patient and/or guardian regarding the historical points, exam findings, and any diagnostic results supporting the discharge/admit diagnosis, lab results, the need for outpatient follow up, to return to the emergency department if symptoms worsen or persist or if there are any questions or concerns that arise at home. Response to treatment: the patient's symptoms have markedly improved after treatment, and as a result, I will discharge patient. Special discussion: I discussed with the patient/guardian in detail that at this point there is no indication for admission to the hospital. It is understood, however, that if the symptoms persist or worsen the patient needs to return immediately for re-evaluation. Special discussion: Based on the history and exam findings, there is no indication for further emergent testing or inpatient evaluation. I discussed with the patient/guardian the need to see the primary care provider for further evaluation of the symptoms. 08/06 09:01 Order name: CBC with Diff; Complete Time: 10:07 rn 08/06 09:01 Order name: Basic Metabolic Panel; Complete Time: 10: rn 08/06 09:01 Order name: Test, Urine; Complete Time: 10: rn 02/18 09:01 Order name: Urinalysis w/ reflexes; Complete Time: 10: rn 08/06 09:29 Order name: Glucose, Ancillary Testing; Complete Time: 10: EDMS 08/06 09:01 Order name: IV Start; Complete Time: 09:33 rn 08/06 09:01 Order name: Glucose Level; Complete Time: 09:33 rn Administered Medications: 09:35 Drug: NS 0.9% IV 1000 ml IV at 1000 ml once; to be given as a bolus over 60 minutes ld1 Route: IV; Rate: 1000 ml; Site: left antecubital; Disposition Summary: 08/06/24 10:25 Discharge Ordered Notes: Location: Home rn Problem: an ongoing problem rn Symptoms: have improved rn Condition: Stable rn Diagnosis - Other specified diabetes mellitus with hyperglycemia rn Followup: rn - With: Private Physician - When: As needed - Reason: Recheck today's complaints, Re-evaluation by your physician Discharge Instructions: - Discharge Summary Sheet rn - Hyperglycemia rn - Blood Glucose Monitoring, Adult rn - Diabetes Mellitus and Nutrition, Adult rn Forms: - Medication Reconciliation Form rn - Antibiotic rn emergency room - Prescription Opioid Use rn - Patient Portal Instructions rn - Leadership Thank You Letter rn Prescriptions: - metformin 1,000 mg Oral Tablet, ER Gastric Retention 24 hr - take 1 tablet ORAL route every evening; 60 tablet; Refills: 0, Product rn Selection Permitted Signatures: Dispatcher [employer] Jenniffer Huber RN Jameson Moncada MD MD rn Sims, Lauren, RN RN ld1 Corrections: (The following items were deleted from the chart) 09:45 09:44 Family history: not pertinent, rn rn
[2024-08-06 11:07] VITALS: BP 114/74; TEMP 98.5; O2SAT 97
== END 2024-08-06 10:38 | disposition home or self-care (01) ==
LOC: ER 08:43
DX: E13.65 Other specified diabetes mellitus with hyperglycemia (principal)
CPT/HCPCS: 85025; 81001; 80048; 36415; 81025; 82947; 99284; J7030